=== PATIENT | female | born 1985 | race Caucasian/White ===

== ENCOUNTER 2016-07-11 12:33 | Inpatient (IN) | payer BC ==
--- NOTE | 2016-07-11 13:30 | P.HPIM ---
History of Present Illness H&P Date: 07/11/16 Chief Complaint: Dyspnea/reactive airway disease. This is a 31-year-old female relatively healthy one of Dr. Gonzales with no prior medical history who Devil loped to have a significant upper respiratory tract infection about 4 weeks ago and she was started on Augmentin and Medrol Dosepak initially this was followed by a Z-Itz without any relief patient did receive also nebulized treatment in the office along with Solu- Medrol on and off. Then she was sent for a chest x-ray yesterday that was negative for acute infiltrate, however the patient continued to have significant shortness breath associated with increased coughing and yellow to green phlegm production, patient was started yesterday on Flovent to 110 g 2 puffs inhalation twice every day, without any relief she was seen either nurse practitioner in the office today and she was referred to the hospital as a direct admit after she felt [id number] 3 nebulized treatment in the office without any relief and a dose of Solu-Medrol. Patient has been complaining of increased shortness breath over the last month or so subsequent she would be admitted to the hospital she will be started on IV Solu-Medrol 60 minute gram IV push every 6 hours, Xopenex 1.25 mg nebulization 4 times every day, Pulmicort 1 mg position twice every day, we will check labs and will obtain pulmonary consultation from Dr. RADHA Fortune. Review of Systems Constitutional: Denies anorexia, Denies chronic headaches, Denies chronic pain, Denies lethargy, Denies malaise, Denies weakness, Denies weight gain, Denies weight loss Eyes: denies blurred vision, denies bulging eye, denies decreased vision, denies diplopia, denies discharge Ears: deny: decreased hearing Ears, nose, mouth and throat: Denies dysphagia, Denies neck lump, Denies swelling in throat, Denies sore throat Breasts: absent: as per HPI Cardiovascular: Reports decreased exercise tolerance, Reports dyspnea on exertion, Reports shortness of breath, Denies chest pain, Denies high blood pressure, Denies paroxysmal nocturnal dyspnea, Denies phlebitis, Denies rapid heart beat, Denies syncope Respiratory: Reports congestion, Reports cough, Reports cough with sputum, Reports dyspnea, Reports sleep apnea, Reports snoring, Reports wheezing, Denies home oxygen Gastrointestinal: Denies abdominal pain, Denies diarrhea, Denies nausea, Denies vomiting Genitourinary: Denies dysuria, Denies hematuria Menstruation: Reports period normal Musculoskeletal: Denies myalgias Musculoskeletal: absent: ankle pain, ankle stiffness, ankle swelling, elbow pain , elbow stiffness, elbow swelling, foot pain, foot stiffness, foot swelling, hand pain, hand stiffness, hand swelling, hip pain, hip stiffness, hip swelling , knee pain, knee stiffness, knee swelling, shoulder pain, shoulder stiffness, shoulder swelling, wrist pain, wrist stiffness, wrist swelling Integumentary: Denies pruritus, Denies rash Neurological: Denies numbness, Denies weakness Psychiatric: Denies anxiety, Denies depression Endocrine: Denies fatigue, Denies weight change Past Medical History Past Medical History: Asthma Past Surgical History: Adenoidectomy, Tonsillectomy Past Anesthesia/Blood Transfusion Reactions: No Reported Reaction Past Psychological History: No Psychological Hx Reported Smoking Status: Never smoker Past Alcohol Use History: Occasional Past Drug Use History: None Reported - Past Family History Mother Family Medical History: Hypertension (Mother is 50-year-old has history of hypertension she also uses drugs heroine.) Father Family Medical History: Hypertension (Father is 52-year-old has history of hypertension and hyperlipidemia.) Brother(s) Family Medical History: No Reported History (Patient has one brother 24-year- old no major medical problems) Sister(s) Family Medical History: No Reported History (Patient has one sister 27-year-old no major medical problems.) Medications and Allergies Allergies Allergy/AdvReac Type Severity Reaction Status Date / Time vancomycin Allergy Rash/Hives Verified 07/11/16 13:10 Physical Exam Vitals: Intake and Output 07/10/16 07/11/16 07/11/16 22:59 06:59 14:59 Other: Weight 114.5 kg Patient Weight 07/12/16 06:59 Weight 114.5 kg - Constitutional General appearance: mild distress, obese - EENT Eyes: anicteric sclerae, EOMI, PERRLA, no ptosis, no scleral icterus, normal appearance ENT: hearing grossly normal, NA/AT, normal oropharynx, no thrush Ears: bilateral: normal - Neck Neck: no lymphadenopathy, normal ROM, no rigidity, no stridor, no thyromegaly Carotids: bilateral: upstroke normal Thyroid: negative: normal size - Respiratory Respiratory: bilateral: diminished, wheezing, prolonged expiration, negative: dullness, rales, rhonchi - Cardiovascular Rhythm: regular Heart sounds: normal: S1, S2 Abnormal Heart Sounds: no systolic murmur, no rub, no S3 Gallop, no S4 Gallop, no click - Gastrointestinal General gastrointestinal: normal bowel sounds, soft, no splenomegaly, no tenderness, no umbilical hernia, no ventral hernia - Integumentary Integumentary: normal, normal turgor - Neurologic Neurologic: CNII-XII intact - Musculoskeletal Musculoskeletal: strength equal bilaterally - Psychiatric Psychiatric: A&O x's 3, appropriate affect, intact judgment & insight Thrombosis Risk Factor Assmnt - DVT/VTE Prophylaxis DVT/VTE Prophylaxis: Mechanical Prophylaxis ordered, Low risk, early ambulation encouraged Assessment and Plan Plan: Assessment and plan: 1. Severe bronchospasm with reactive airway disease with acute bronchitis. Patient failed outpatient abdomen for the past 4 weeks, we'll start the patient on Solu-Medrol 60 mg IV push every 6 hours, Xopenex 1.25 mg inhalation 4 times every day, Pulmicort 1 mg inhalation twice every day, Levaquin 500 mg IV piggyback every 24 hours, we will check laboratory evaluation including d-dimer , BNP, CBC, CMP, check Mycoplasma antibodies IgG and IgM, legionella antigen in the urine, influenza AB PCR. Pulmonary consultation Dr. RADHA Fortune, if not improved in the next 24 hours we will check computed tomography scan of the chest with contrast. 2. Recent upper respiratory tract infection. Continue treatment as in paragraph #1. 3. Obesity. Patient may need to have a sleep study as an outpatient. 4. GI prophylaxis. Start the patient on the Protonix 40 mg IV push every 24 hours. 5. DVT prophylaxis. Early ambulation, start the patient on bilateral knee- high RAMONE hose. 6. Admit as an inpatient. Estimate a length of stay 2 midnights. 7. Patient is full code.
[2016-07-11] MEDS: LEVOFLOXACIN 500MG-D5W PMX 500 MG in DEXTROSE/WATER 1 100ML.BAG IVPB SCH (14:27)
[2016-07-11] MEDS: methylPREDNISolone SOD SUCCI 125 MG/2 ML VIAL IV SCH ×3 (14:27→23:32)
[2016-07-11] MEDS: PANTOPRAZOLE 40 MG/10 ML VIAL IVP SCH (14:27)
[2016-07-11] MEDS: SODIUM CHLORIDE 0.9% 1,000 ML IV SCH (14:27)
[2016-07-11 14:58] LABS: Appearance,Urine Clear (Clear); Bilirubin,Urine Negative (Negative); Glucose,Urine (UA) Negative (Negative); Ketones,Urine 1+ (Negative); Leukocyte Esterase,Urine Negative (Negative); Nitrite,Urine Negative (Negative); PH, Urine 6.5 (5.0-8.0); Protein,Urine Negative (Negative); Specific Gravity,Urine 1.011 (1.001-1.035); UA Billing (MACRO vs. MICRO) CHEM; Urobilinogen,Urine <2.0 mg/dL (<2.0)
[2016-07-11 15:10] LABS: Basophils % (A) 0 %; CH 30.1; CHCM 33.6; Eosinophils % (A) 0 %; HDW 2.28; HGB 15.2 gm/dL (11.4-16.0); Luc # (Auto) 0.09; Luc % (Auto) 1; Lymphocytes % (A) 7 %; MCH 29.8 pg (25.0-35.0); MCHC 33.1 g/dL (31.0-37.0); Mean Platelet Volume 7.6; Monocytes # (A) 0.3 k/uL (0-1.0); Monocytes % (A) 2 %; Neutrophils # (A) 12.6 k/uL (1.3-7.7); Neutrophils % (A) 90 %; RBC 5.11 m/uL (3.80-5.40); RDW 13.7 % (11.5-15.5); WBC (Perox) 14.05
[2016-07-11 15:25] LABS: ALT 49 U/L (9-52); AST 21 U/L (14-36); Alkaline Phosphatase 57 U/L (38-126); Anion Gap 12 mmol/L; Blood Urea Nitrogen 10 mg/dL (7-17); Calcium 9.9 mg/dL (8.4-10.2); Carbon Dioxide 24 mmol/L (22-30); Chloride 104 mmol/L (98-107); Glucose 135 mg/dL (74-99); Non-African American GFR(MDRD) >60 (>60 ml/min/1.73 sqM); Potassium 4.1 mmol/L (3.5-5.1); Sodium 140 mmol/L (137-145); Total Bilirubin 0.4 mg/dL (0.2-1.3); Total Protein 6.9 g/dL (6.3-8.2)
[2016-07-11] MEDS: LEVALBUTEROL NEB 1.25 MG/3 ML AMP INHALATION SCH ×2 (15:56→20:22)
[2016-07-11] MEDS: BUDESONIDE 1 MG/2 ML NEBU INHALATION SCH (20:22)
[2016-07-11] MEDS: MELATONIN 5 MG TABLET PO PRN (22:28)
[2016-07-12 03:25] LABS: Basophils % (A) 0 %; CH 30.2; CHCM 34.6; Eosinophils % (A) 0 %; HCT 42.8 % (34.0-46.0); HDW 2.37; HGB 14.7 gm/dL (11.4-16.0); Luc # (Auto) 0.08; Luc % (Auto) 1; Lymphocytes % (A) 7 %; MCH 30.2 pg (25.0-35.0); MCHC 34.4 g/dL (31.0-37.0); MCV 87.8 fL (80.0-100.0); Mean Platelet Volume 7.3; Monocytes # (A) 0.3 k/uL (0-1.0); Monocytes % (A) 2 %; Neutrophils # (A) 13.6 k/uL (1.3-7.7); Neutrophils % (A) 91 %; RBC 4.87 m/uL (3.80-5.40); RDW 13.3 % (11.5-15.5); WBC (Perox) 14.75
[2016-07-12 04:02] LABS: ALT 44 U/L (9-52); AST 14 U/L (14-36); Alkaline Phosphatase 47 U/L (38-126); Anion Gap 10 mmol/L; Blood Urea Nitrogen 10 mg/dL (7-17); Calcium 9.8 mg/dL (8.4-10.2); Carbon Dioxide 23 mmol/L (22-30); Chloride 108 mmol/L (98-107); Glucose 141 mg/dL (74-99); Non-African American GFR(MDRD) >60 (>60 ml/min/1.73 sqM); Potassium 4.4 mmol/L (3.5-5.1); Sodium 141 mmol/L (137-145); Total Bilirubin 0.4 mg/dL (0.2-1.3); Total Protein 6.6 g/dL (6.3-8.2)
[2016-07-12] MEDS: SODIUM CHLORIDE 0.9% 1,000 ML IV SCH ×2 (06:01→14:21)
[2016-07-12] MEDS: methylPREDNISolone SOD SUCCI 125 MG/2 ML VIAL IV SCH ×3 (06:01→17:50)
--- NOTE | 2016-07-12 06:23 | ECHOF ---
Referral Reason:dyspnea MEASUREMENTS -------- HEIGHT: 162.6 cm WEIGHT: 114.3 kg BP: RVIDd: 2.7 cm (< 3.3) IVSd: 1.2 cm (0.6 - 1.1) LVIDd: 3.6 cm (3.9 - 5.3) LVPWd: 1.1 cm (0.6 - 1.1) IVSs: 1.8 cm LVIDs: 1.7 cm LVPWs: 2.0 cm LAESV Index (A-L): 12.44 ml/m Ao Diam: 2.9 cm (2.0 - 3.7) AV Cusp: 1.7 cm (1.5 - 2.6) LA Diam: 3.7 cm (2.7 - 3.8) MV EXCURSION: 15.618 mm (> 18.000) MV EF SLOPE: 95 mm/s (70 - 150) EPSS: 0.7 cm MV E Patric: 0.92 m/s MV DecT: 189 ms MV A Patric: 0.55 m/s MV E/A Ratio: 1.66 RAP: 5.00 mmHg RVSP: 9.56 mmHg FINDINGS -------- Resting tachycardia (HR>100bpm). This was a technically adequate study. There is borderline concentric left ventricular hypertrophy. Overall left ventricular systolic function is normal with, an EF between 60 - 65 %. The right ventricle is normal in size and function. Normal LA size by volume 22+/-6 ml/m2. The right atrium is normal in size. The aortic valve is trileaflet, and appears structurally normal. No aortic stenosis or regurgitation. The mitral valve is normal. There is trace mitral regurgitation. Trace tricuspid regurgitation present. There is no evidence of pulmonary hypertension. The right ventricular systolic pressure, as measured by Doppler, is 9.56mmHg. The pulmonic valve is normal. The aortic root size is normal. Normal inferior vena cava with normal inspiratory collapse consistent with estimated right atrial pressure of 5 mmHg. The pericardium is normal. There is no pericardial effusion. CONCLUSIONS -------- 1. Resting tachycardia (HR>100bpm). 2. There is no pericardial effusion. 3. There is borderline concentric left ventricular hypertrophy. 4. Normal LA size by volume 22+/-6 ml/m2. 5. The aortic valve is trileaflet, and appears structurally normal. No aortic stenosis or regurgitation. 6. There is trace mitral regurgitation. 7. Trace tricuspid regurgitation present. 8. There is no evidence of pulmonary hypertension. 9. The right ventricular systolic pressure, as measured by Doppler, is 9.56mmHg. 10. The aortic root size is normal. [employer]: Guicho Suazo RDCS
[2016-07-12] MEDS: PANTOPRAZOLE 40 MG/10 ML VIAL IVP SCH (08:06)
[2016-07-12] MEDS: BUDESONIDE 1 MG/2 ML NEBU INHALATION SCH ×2 (08:43→19:22)
[2016-07-12] MEDS: LEVALBUTEROL NEB 1.25 MG/3 ML AMP INHALATION SCH ×4 (08:43→19:22)
[2016-07-12 10:42] VITALS: BMI 43.3
--- NOTE | 2016-07-12 10:54 | P.PN ---
Subjective This is a 31-year-old female relatively healthy one of Dr. Gonzales with no prior medical history who Devil loped to have a significant upper respiratory tract infection about 4 weeks ago and she was started on Augmentin and Medrol Dosepak initially this was followed by a Z-Itz without any relief patient did receive also nebulized treatment in the office along with Solu- Medrol on and off. Then she was sent for a chest x-ray yesterday that was negative for acute infiltrate, however the patient continued to have significant shortness breath associated with increased coughing and yellow to green phlegm production, patient was started yesterday on Flovent to 110 g 2 puffs inhalation twice every day, without any relief she was seen either nurse practitioner in the office today and she was referred to the hospital as a direct admit after she felt [id number] 3 nebulized treatment in the office without any relief and a dose of Solu-Medrol. Patient has been complaining of increased shortness breath over the last month or so subsequent she would be admitted to the hospital she will be started on IV Solu-Medrol 60 minute gram IV push every 6 hours, Xopenex 1.25 mg nebulization 4 times every day, Pulmicort 1 mg position twice every day, we will check labs and will obtain pulmonary consultation from Dr. RADHA Fortune. 07/12: Patient states that her breathing is a little bit better today but she does have shortness of breath with activity. She is complaining of feeling jittery after updraft treatments but this quickly resolves. She does have some tightness in her chest as well. Patient is concerned that she is exposed to mold in her apartment. No lower extremity edema. Bowel movement was yesterday. Patient does state that she sleeps well with melatonin. Consult with Dr. RADHA Fortune in place. Objective - Vital Signs Vital signs: Vital Signs Temp 97.3 F L 07/12/16 07:00 Pulse 90 07/12/16 07:00 Resp 20 07/12/16 08:00 BP 134/81 07/12/16 07:00 Pulse Ox 97 07/12/16 07:00 Intake & Output 07/11/16 07/12/16 07/12/16 18:59 06:59 18:59 Intake Total 800 Balance 800 Weight 114.5 kg Intake: Oral 800 Other: Voiding Method Toilet Toilet # Voids 2 2 - Exam Constitutional General appearance: mild distress, obese - EENT Eyes: anicteric sclerae, EOMI, PERRLA, no ptosis, no scleral icterus, normal appearance ENT: hearing grossly normal, NA/AT, normal oropharynx, no thrush Ears: bilateral: normal - Neck Neck: no lymphadenopathy, normal ROM, no rigidity, no stridor, no thyromegaly Carotids: bilateral: upstroke normal Thyroid: negative: normal size - Respiratory Respiratory: bilateral: diminished, wheezing, prolonged expiration, negative: dullness, rales, rhonchi - Cardiovascular Rhythm: regular Heart sounds: normal: S1, S2 Abnormal Heart Sounds: no systolic murmur, no rub, no S3 Gallop, no S4 Gallop, no click - Gastrointestinal General gastrointestinal: normal bowel sounds, soft, no splenomegaly, no tenderness, no umbilical hernia, no ventral hernia - Integumentary Integumentary: normal, normal turgor - Neurologic Neurologic: CNII-XII intact - Musculoskeletal Musculoskeletal: strength equal bilaterally - Psychiatric Psychiatric: A&O x's 3, appropriate affect, intact judgment & insight Thrombosis Risk Factor Assmnt - DVT/VTE Prophylaxis DVT/VTE Prophylaxis: Mechanical Prophylaxis ordered, Low risk, early ambulation encouraged - Labs CBC & Chem 7: 07/12/16 02:35 07/12/16 02:35 Labs: Abnormal Lab Results - Last 24 Hours (Table) 07/11/16 07/11/16 07/11/16 Range/Units 14:40 14:43 14:43 WBC 14.0 H (3.8-10.6) k/uL Neutrophils # 12.6 H (1.3-7.7) k/uL Chloride (98-107) mmol/L Glucose 135 H (74-99) mg/dL TSH 0.373 L (0.465-4.680) mIU/L Urine Ketones 1+ H (Negative) 07/12/16 07/12/16 Range/Units 02:35 02:35 WBC 15.0 H (3.8-10.6) k/uL Neutrophils # 13.6 H (1.3-7.7) k/uL Chloride 108 H (98-107) mmol/L Glucose 141 H (74-99) mg/dL TSH (0.465-4.680) mIU/L Urine Ketones (Negative) Assessment and Plan Plan: 1. Severe bronchospasm with reactive airway disease with acute bronchitis with possible underlying asthma not previously diagnosed with concern for mold exposure. Patient failed outpatient abdomen for the past 4 weeks, we'll start the patient on Solu-Medrol 60 mg IV push every 6 hours, Xopenex 1.25 mg inhalation 4 times every day, Pulmicort 1 mg inhalation twice every day, Levaquin 500 mg IV piggyback every 24 hours, we will check laboratory evaluation including d-dimer, BNP, CBC, CMP, check Mycoplasma antibodies IgG and IgM, legionella antigen in the urine. Pulmonary consultation Dr. RADHA Fortune, if not improved in the next 24 hours we will check computed tomography scan of the chest with contrast. 2. Recent upper respiratory tract infection. Continue treatment as in paragraph #1. 3. Obesity. Patient may need to have a sleep study as an outpatient. 4. GI prophylaxis. Start the patient on the Protonix 40 mg IV push every 24 hours. 5. DVT prophylaxis. Early ambulation, start the patient on bilateral knee- high RAMONE hose. 6. Admit as an inpatient. Estimate a length of stay 2 midnights. 7. Patient is full code. Discharge plan: Return home Impression and plan of care have been directed as dictated by the signing physician. Shira Vogel nurse practitioner acting as scribe for signing physician.
--- NOTE | 2016-07-12 12:09 | CT ---
EXAMINATION TYPE: CT chest wo con DATE OF EXAM: 07/12/2016 COMPARISON: NONE HISTORY: asthma CT DLP: 600.[address] of the chest was performed with lung and mediastinal window settings submitted. The la ck of contrast limits evaluation of the vascular, mediastinal and parenchymal structures including th e upper abdomen. LUNGS: The lungs are clear and free of infiltrate. No atelectasis. No pulmonary nodule or mass is de tected. No pleural effusion. No CT evidence of interstitial lung disease. MEDIASTINUM/DENVER: Thoracic aorta is of normal caliber with limited evaluation given lack of contrast . The heart is not enlarged. No evidence for mediastinal mass. No lymph nodes greater than 1cm. UPPER ABDOMEN: No significant abnormality is seen. OTHER: No significant other abnormality. IMPRESSION: 1. Normal study
[2016-07-12] MEDS: traMADol 50 MG TAB PO PRN ×2 (12:29→22:22)
[2016-07-12 12:44] LABS: Hemoglobin A1C 5.5 % (4.2-6.1)
--- NOTE | 2016-07-12 13:37 | CONS ---
DATE OF CONSULTATION: Bienvenido Dior is a 31-year-old female who presented to [facility] with cough, increasing shortness of breath. No clear fever or chills. This has been going on for approximately 4 weeks. She was treated with 2 courses of antibiotics and high-dose steroids in the form of Medrol Dosepak but also Solu-Medrol. She failed to improve and subsequently was admitted for further evaluation. She lives in an apartment that has been significant mold exposure that is also reconstruction going on at that time where it is likely that she is significantly exposed to mold. She had chest x-ray done at least twice, which showed no discrete infiltrates. She is short of breath and has wheezing at this time. Her past medical history is positive for tonsillectomy as a child. History of tonsillitis and upper respiratory infection about once a year. History consistent with asthma in the past. Family history is positive for lung cancer in her grandfather, hypertension in her mother and father. SOCIAL HISTORY: Patient is a nonsmoker, does not drink alcohol excessively. Has been exposed to mold in both her medical office. Her medications prior to admission were Flovent, Ventolin, Ultram, Colace, vitamins, Adderall, prednisone, codeine with guaifenesin. On physical examination, respiratory rate is 20, pulse of 88, temperature 97.3, blood pressure 134/81, O2 sat on room air is 97%. HEENT reveals pupils that are equal. No jugular venous distention. Chest reveals expiratory wheeze, prolonged expiration, poor air entry. Cardiovascular S1 and S2, no S3, no S4. Abdomen is soft. There is no pedal edema. Chest x-ray does not show any discrete infiltrate. White count is 15,000, hemoglobin of 14.7. Sodium 141, potassium 4.4, chloride 108, bicarb 23, glucose 141. Influenza A and B are negative. Urine ketones are positive. TSH is 0.373, FT4 is 1.34, plasma lactic acid is 1.1. IMPRESSION: 1. Asthma, severe with acute exacerbation is likely. 2. Infectious versus noninfectious reasons for exacerbation. At this point in time, from a pulmonary standpoint, would keep her on IV steroids, bronchodilators, aerosolized steroids. Add montelukast to her regimen. Keep her on GI and DVT prophylaxis. Check an allergy profile on her as well as a CT scan of the chest to make sure we are not dealing with any anatomic lesions as her symptoms have gone on for quite a bit. Decrease exposure to mold, check peak flows and give her a peak flow meter. Patient was counseled regarding her condition and this approach. The patient is allergic to VANCOMYCIN. Would hold off on specific antibiotic coverage at this time.
[2016-07-12] MEDS: LEVOFLOXACIN 500MG-D5W PMX 500 MG in DEXTROSE/WATER 1 100ML.BAG IVPB SCH (14:17)
[2016-07-12] MEDS: MELATONIN 5 MG TABLET PO PRN (22:09)
[2016-07-12] MEDS: HEPARIN SODIUM,PORCINE 5,000 UNIT/ML 1 ML VIAL SQ SCH (22:09)
[2016-07-12] MEDS: FAMOTIDINE 20 MG TAB PO SCH (22:10)
[2016-07-12] MEDS: MONTELUKAST 10 MG TAB PO SCH (22:10)
[2016-07-13] MEDS: methylPREDNISolone SOD SUCCI 125 MG/2 ML VIAL IV SCH ×2 (01:33→06:23)
[2016-07-13] MEDS: SODIUM CHLORIDE 0.9% 1,000 ML IV SCH (06:23)
[2016-07-13] MEDS: HEPARIN SODIUM,PORCINE 5,000 UNIT/ML 1 ML VIAL SQ SCH ×2 (07:52→21:22)
[2016-07-13] MEDS: PANTOPRAZOLE 40 MG/10 ML VIAL IVP SCH (07:52)
[2016-07-13] MEDS: FAMOTIDINE 20 MG TAB PO SCH ×2 (07:53→21:22)
[2016-07-13] MEDS: traMADol 50 MG TAB PO PRN ×2 (07:54→17:06)
[2016-07-13] MEDS: LEVALBUTEROL NEB 1.25 MG/3 ML AMP INHALATION SCH ×4 (08:03→19:26)
[2016-07-13] MEDS: BUDESONIDE 1 MG/2 ML NEBU INHALATION SCH ×2 (08:03→19:25)
--- NOTE | 2016-07-13 09:33 | P.PN ---
Subjective This is a 31-year-old female relatively healthy one of Dr. Gonzales with no prior medical history who Devil loped to have a significant upper respiratory tract infection about 4 weeks ago and she was started on Augmentin and Medrol Dosepak initially this was followed by a Z-Itz without any relief patient did receive also nebulized treatment in the office along with Solu- Medrol on and off. Then she was sent for a chest x-ray yesterday that was negative for acute infiltrate, however the patient continued to have significant shortness breath associated with increased coughing and yellow to green phlegm production, patient was started yesterday on Flovent to 110 g 2 puffs inhalation twice every day, without any relief she was seen either nurse practitioner in the office today and she was referred to the hospital as a direct admit after she felt [id number] 3 nebulized treatment in the office without any relief and a dose of Solu-Medrol. Patient has been complaining of increased shortness breath over the last month or so subsequent she would be admitted to the hospital she will be started on IV Solu-Medrol 60 minute gram IV push every 6 hours, Xopenex 1.25 mg nebulization 4 times every day, Pulmicort 1 mg position twice every day, we will check labs and will obtain pulmonary consultation from Dr. RADHA Fortune. 07/12: Patient states that her breathing is a little bit better today but she does have shortness of breath with activity. She is complaining of feeling jittery after updraft treatments but this quickly resolves. She does have some tightness in her chest as well. Patient is concerned that she is exposed to mold in her apartment. No lower extremity edema. Bowel movement was yesterday. Patient does state that she sleeps well with melatonin. Consult with Dr. RADHA Fortune in place. 07/13: Patient states that her breathing status seems to be improving. She is very anxious to get home but is agreeable to stay. She has been seen by Dr. RADHA Fortune. Tara added. CAT scan of the chest was done which was normal. Peak flow is between 450 and 550. Solu-Medrol will be decreased to 40 mg every 8 hours. Patient continues to have wheezing but is slowly improving. Objective - Vital Signs Vital signs: Vital Signs Temp 97.1 F L 07/13/16 07:00 Pulse 100 07/13/16 08:03 Resp 20 07/13/16 07:00 BP 132/83 07/13/16 07:00 Pulse Ox 96 07/13/16 07:00 Intake & Output 07/12/16 07/13/16 07/13/16 18:59 06:59 18:59 Intake Total 400 Balance 400 Weight 114.5 kg Intake: Oral 400 Other: Voiding Method Toilet # Voids 3 1 # Bowel Movements 0 - Exam Constitutional General appearance: mild distress, obese - EENT Eyes: anicteric sclerae, EOMI, PERRLA, no ptosis, no scleral icterus, normal appearance ENT: hearing grossly normal, NA/AT, normal oropharynx, no thrush Ears: bilateral: normal - Neck Neck: no lymphadenopathy, normal ROM, no rigidity, no stridor, no thyromegaly Carotids: bilateral: upstroke normal Thyroid: negative: normal size - Respiratory Respiratory: bilateral: diminished, wheezing, prolonged expiration, negative: dullness, rales, rhonchi - Cardiovascular Rhythm: regular Heart sounds: normal: S1, S2 Abnormal Heart Sounds: no systolic murmur, no rub, no S3 Gallop, no S4 Gallop, no click - Gastrointestinal General gastrointestinal: normal bowel sounds, soft, no splenomegaly, no tenderness, no umbilical hernia, no ventral hernia - Integumentary Integumentary: normal, normal turgor - Neurologic Neurologic: CNII-XII intact - Musculoskeletal Musculoskeletal: strength equal bilaterally - Psychiatric Psychiatric: A&O x's 3, appropriate affect, intact judgment & insight Thrombosis Risk Factor Assmnt - DVT/VTE Prophylaxis DVT/VTE Prophylaxis: Mechanical Prophylaxis ordered, Low risk, early ambulation encouraged - Labs CBC & Chem 7: 07/12/16 02:35 07/12/16 02:35 Assessment and Plan Plan: 1. Severe bronchospasm with reactive airway disease with acute bronchitis with possible underlying asthma not previously diagnosed with concern for mold exposure. Patient failed outpatient treatment for the past 4 weeks. Continue Xopenex 4 times daily, Pulmicort twice daily, Levaquin 500 mg daily, Solu- Medrol decreased to 40 mg every 8 hours, Singulair 10 mg. 2. Recent upper respiratory tract infection. Continue treatment as in paragraph #1. 3. Obesity. Patient may need to have a sleep study as an outpatient. 4. GI prophylaxis. Start the patient on the Protonix 40 mg every 24 hours. 5. DVT prophylaxis. Early ambulation, start the patient on bilateral knee- high RAMONE hose. 6. Admit as an inpatient. Estimate a length of stay 2 midnights. 7. Patient is full code. Discharge plan: Return home Impression and plan of care have been directed as dictated by the signing physician. Shira Vogel nurse practitioner acting as scribe for signing physician.
[2016-07-13] MEDS ORDERED: LEVOFLOXACIN 500 MG TAB PO SCH (14:00)
[2016-07-13] MEDS: methylPREDNISolone SOD SUCCI 40 MG/ML 1 ML VIAL IV SCH ×2 (14:08→23:56)
--- NOTE | 2016-07-13 19:12 | PN ---
DATE OF SERVICE: 07/13/2016. She was seen on 07/13/2016. She is doing slightly better overall. On physical examination, respiratory rate is 20, pulse rate of 104, blood pressure 132/83, O2 sat on room air is 96%. HEENT is unremarkable. Chest reveals expiratory wheeze. Cardiovascular system reveals an S1, S2. ABDOMEN: Soft. There is no pedal edema. CT scan of the chest failed to show any lung masses, however, there seems to be diffuse irregularity of the mucosa in the main bronchi as well as the trachea consistent with airway inflammation. Allergy profile is pending. IMPRESSION: Asthma with acute exacerbation is likely. Would consider a slow taper of steroids as an outpatient over at least 12 days starting at 60 mg of prednisone, was given an extra dose of Solu-Medrol tomorrow morning if she is not improving completely. She has received Solu-Medrol 60 mg IV push q6 so far that will be switched to 40 q8 per the primary service. Would continue to check peak flows on her and avoid mold exposure. Her prognosis at this time is fair. She was counseled extensively regarding her condition and this approach.
[2016-07-13] MEDS: MONTELUKAST 10 MG TAB PO SCH (21:20)
[2016-07-13] MEDS: MELATONIN 5 MG TABLET PO PRN (22:21)
[2016-07-14 03:20] LABS: Mycoplasma IgG Antibody (EIA) 1.14 INDEX (<=0.90); Mycoplasma IgM Antibody 0.36 INDEX (<=0.90)
[2016-07-14] MEDS ORDERED: PANTOPRAZOLE 40 MG TABLET PO SCH (07:30)
[2016-07-14 07:46] VITALS: BP 126/66; RESP 16; TEMP 98.4
[2016-07-14] MEDS: BUDESONIDE 1 MG/2 ML NEBU INHALATION SCH (08:15)
[2016-07-14] MEDS: LEVALBUTEROL NEB 1.25 MG/3 ML AMP INHALATION SCH ×2 (08:15→11:40)
[2016-07-14] MEDS: FAMOTIDINE 20 MG TAB PO SCH (08:39)
[2016-07-14] MEDS: methylPREDNISolone SOD SUCCI 40 MG/ML 1 ML VIAL IV SCH (08:40)
[2016-07-14] MEDS: HEPARIN SODIUM,PORCINE 5,000 UNIT/ML 1 ML VIAL SQ SCH (08:40)
[2016-07-14] MEDS: traMADol 50 MG TAB PO PRN (08:42)
[2016-07-14 11:41] VITALS: PULSE 92
--- NOTE | 2016-07-14 16:34 | P.DS ---
Providers Date of admission: 07/11/16 12:33 Expected date of discharge: 07/14/16 Attending physician: Wild Tavera Consults: 07/11/16 13:18 Consult Physician Routine Consulting Provider: Sriram Fortune Consult Reason/Comments: Dyspnea/Bronchospasm Do you want consulting provider notified?: Yes Primary care physician: Wild Tavera Hospital Course: This is a 31-year-old female relatively healthy one of Dr. Gonzales with no prior medical history who Devil loped to have a significant upper respiratory tract infection about 4 weeks ago and she was started on Augmentin and Medrol Dosepak initially this was followed by a Z-Itz without any relief patient did receive also nebulized treatment in the office along with Solu- Medrol on and off. Then she was sent for a chest x-ray yesterday that was negative for acute infiltrate, however the patient continued to have significant shortness breath associated with increased coughing and yellow to green phlegm production, patient was started yesterday on Flovent to 110 g 2 puffs inhalation twice every day, without any relief she was seen either nurse practitioner in the office today and she was referred to the hospital as a direct admit after she felt [id number] 3 nebulized treatment in the office without any relief and a dose of Solu-Medrol. Patient has been complaining of increased shortness breath over the last month or so subsequent she would be admitted to the hospital she will be started on IV Solu-Medrol 60 minute gram IV push every 6 hours, Xopenex 1.25 mg nebulization 4 times every day, Pulmicort 1 mg position twice every day, we will check labs and will obtain pulmonary consultation from Dr. RADHA Fortune. 63: Patient states that her breathing is a little bit better today but she does have shortness of breath with activity. She is complaining of feeling jittery after updraft treatments but this quickly resolves. She does have some tightness in her chest as well. Patient is concerned that she is exposed to mold in her apartment. No lower extremity edema. Bowel movement was yesterday. Patient does state that she sleeps well with melatonin. Consult with Dr. RADHA Fortune in place. 07/13: Patient states that her breathing status seems to be improving. She is very anxious to get home but is agreeable to stay. She has been seen by Dr. RADHA Fortune. Singulair added. CAT scan of the chest was done which was normal. Peak flow is between 450 and 550. Solu-Medrol will be decreased to 40 mg every 8 hours. Patient continues to have wheezing but is slowly improving. 07/14: Patient states her shortness of breath and wheezing are improved. Wheezing is noted to be improved from admission. Coughing is less frequent. Patient will be discharged home today in stable condition. Discharge diagnoses: 1. Severe bronchospasm with reactive airway disease with acute bronchitis most likely due to underlying asthma not previously diagnosed with concern for mold exposure and failure of outpatient treatment for the past 4 weeks. 2. Recent upper respiratory tract infection. 3. Obesity. Patient may need to have a sleep study as an outpatient. Discharge plan: Return home Impression and plan of care have been directed as dictated by the signing physician. Shira Vogel nurse practitioner acting as scribe for signing physician. Patient Condition at Discharge: Good Plan - Discharge Summary New Discharge Prescriptions: New Famotidine [Pepcid] 20 mg PO BID tab Levofloxacin [Levaquin] 500 mg PO Q24H #5 tab Melatonin 5 mg PO HS PRN tab PRN Reason: Insomnia Montelukast [Singulair] 10 mg PO HS #30 tab predniSONE 0 mg PO DIRECTED #40 tab Continue Albuterol Inhaler [Ventolin Hfa Inhaler] 2 puff INHALATION RT-Q6H PRN PRN Reason: Shortness Of Breath traMADol HCL [Ultram] 50 mg PO DAILY PRN PRN Reason: Pain Docusate [Colace] 100 mg PO DAILY Pnv,Calcium 72/Iron/Folic Acid [ Plus Tablet] 1 tab PO DAILY Dextroamphetamine/Amphetamine [Adderall] 30 mg PO BID Fluticasone Propionate [Flovent Hfa] 2 puff INHALATION RT-BID Discontinued predniSONE See Taper PO DIRECTED Codeine Phosphate/Guaifenesin [Cheratussin AC Syrup] 5 ml PO BID PRN PRN Reason: Cough Discharge Medication List Albuterol Inhaler [Ventolin Hfa Inhaler] 2 puff INHALATION RT-Q6H PRN 07/11/16 [ History] Dextroamphetamine/Amphetamine [Adderall] 30 mg PO BID 07/11/16 [History] Docusate [Colace] 100 mg PO DAILY 07/11/16 [History] Fluticasone Propionate [Flovent Hfa] 2 puff INHALATION RT-BID 07/11/16 [History] Pnv,Calcium 72/Iron/Folic Acid [ Plus Tablet] 1 tab PO DAILY 07/11/16 [ History] traMADol HCL [Ultram] 50 mg PO DAILY PRN 07/11/16 [History] Famotidine [Pepcid] 20 mg PO BID tab 07/14/16 [Rx] Levofloxacin [Levaquin] 500 mg PO Q24H #5 tab 07/14/16 [Rx] Melatonin 5 mg PO HS PRN tab 07/14/16 [Rx] Montelukast [Singulair] 10 mg PO HS #30 tab 07/14/16 [Rx] predniSONE 0 mg PO DIRECTED #40 tab 07/14/16 [Rx] Follow up Appointment(s)/Referral(s): Patricia Gonzales MD [STAFF PHYSICIAN] - 07/18/16 10:45 am Sriram Fortune MD [STAFF PHYSICIAN] - 1 Week Patient Instructions/Handouts: Asthma (DC), Reactive Airways Disease (DC) Discharge Disposition: HOME SELF-CARE
[2016-07-15 12:09] LABS: Alternaria alternata IgE <0.35 kU/L (<0.35); Asperg. fumagatus IgE <0.35 kU/L (<0.35); Asperg. fumagatus IgE Class CLASS 0; Birch(Com.Silvr) IgE Class CLASS 0; Cat Epith & Dander IgE <0.35 kU/L (<0.35); Cat Epith & Dander IgE Class CLASS 0; Clad herbarum IgE <0.35 kU/L (<0.35); Clad herbarum IgE Class CLASS 0; Common Ragweed IgE Class CLASS 0; Dermato. Pteronyssinus Class CLASS 0; Dermato. Pteronyssinus IgE <0.35 kU/L (<0.35); Dermato. farinae IgE <0.35 kU/L (<0.35); Dermato. farinae IgE Class CLASS 0; IgE (Allergen) 11.7 IU/mL (<114.0); Maple (Box Elder) IgE <0.35 kU/L (<0.35); Maple (Box Elder) IgE Class CLASS 0; Mountain Cedar IgE <0.35 kU/L (<0.35); Mountain Cedar IgE Class CLASS 0; Mouse Urine IgE Class CLASS 0; Mouse Urine Proteins,IgE <0.35 kU/L (<0.35); Mulberry IgE Class CLASS 0; Nettle IgE <0.35 kU/L (<0.35); Nettle IgE Class CLASS 0; Oak IgE <0.35 kU/L (<0.35); Penicillium notatum IgE Class CLASS 0; Rough Marshelder IgE <0.35 kU/L (<0.35); Rough Marshelder IgE Class CLASS 0; Timothy Grass IgE <0.35 kU/L (<0.35); Timothy Grass IgE Class CLASS 0; White Ash IgE Class CLASS 0
[2016-07-18 02:39] LABS: Alternaria tenius IgG < 2.0 mcg/mL (< 13.6); Cladosporium herbarium IgG 4.8 mcg/mL (< 14.7); Phoma ssp. IgG < 2.0 mcg/mL (< 6.6); Saccaharomospora viridis Not detected (Not detected); Saccaharopoly. rectivirgula Not detected (Not detected)
== END 2016-07-14 13:15 | disposition home or self-care (01) | DRG 202 ==
LOC: 4MS4W 12:33
PROVIDERS: ADMIT Internal Medicine; ATTEND Internal Medicine
DX: J45.901 Unspecified asthma with (acute) exacerbation (principal); Z68.41 Body mass index [BMI] 40.0-44.9, adult; R82.4 Acetonuria; J20.9 Acute bronchitis, unspecified; E66.9 Obesity, unspecified; Z88.1 Allergy status to other antibiotic agents; Z82.49 Family history of ischemic heart disease and other diseases of the circulatory system; Z80.1 Family history of malignant neoplasm of trachea, bronchus and lung; Z71.3 Dietary counseling and surveillance; Z81.3 Family history of other psychoactive substance abuse and dependence; Z86.19 Personal history of other infectious and parasitic diseases; Z77.120 Contact with and (suspected) exposure to mold (toxic); Z79.891 Long term (current) use of opiate analgesic; Z79.51 Long term (current) use of inhaled steroids; Z79.52 Long term (current) use of systemic steroids; Z79.899 Other long term (current) drug therapy; Z79.2 Long term (current) use of antibiotics; Z87.09 Personal history of other diseases of the respiratory system
CPT/HCPCS: 71250; 80053; 81003; 82103; 82104; 82164; 82785; 83036; 83605; 83880; 84439; 84443; 84484; 85025; 85379; 86001; 86003; 86038; 86606; 86609; 86738; 87449; 87502; 93005; 93306; 94640; 94760

== ENCOUNTER 2017-11-24 19:47 | Emergency (ER) | payer BC, OTHER ==
[2017-11-24 20:11] VITALS: TEMP 98.1
--- NOTE | 2017-11-24 20:29 | ED ---
Abdominal Pain HPI - General Chief Complaint: Abdominal Pain Stated Complaint: 13 wks preg/abdominal pain Time Seen by Provider: 11/24/17 20:18 Source: patient, RN notes reviewed Mode of arrival: ambulatory Limitations: no limitations - History of Present Illness Initial Comments: This is a 32-year-old female who presents to the emergency department with chief complaint of lower abdominal pain. Patient states that she is currently 13-1/2 weeks . She states that Dr. Reyes is her INDUSTRIAL COOK. Patient reports that at approximately 7 PM this evening she developed intense cramping in her lower abdomen. She states that the pain has improved and now feels like a tightening in her lower abdomen. She denies any vaginal bleeding or discharge. She denies fevers or chills, nausea or vomiting, diarrhea. 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 - Related Data Home Medications Medication Instructions Recorded Confirmed Pnv,Calcium 72/Iron/Folic Acid 1 tab PO HS 07/11/16 11/24/17 [ Plus Tablet] Progesterone, Micronized 200 mg PO HS 11/24/17 11/24/17 [Progesterone] Allergies Allergy/AdvReac Type Severity Reaction Status Date / Time vancomycin Allergy Rash/Hives Verified 11/24/17 20:25 Review of Systems ROS Statement: Those systems with pertinent positive or pertinent negative responses have been documented in the HPI. ROS Other: All systems not noted in ROS Statement are negative. Past Medical History Past Medical History: Pneumonia Additional Past Medical History / Comment(s): Recent URI x 4 weeks, constipation , hemorrhoids. History of Any Multi-Drug Resistant Organisms: None Reported Past Surgical History: Tonsillectomy Additional Past Surgical History / Comment(s): Colonoscopy Past Anesthesia/Blood Transfusion Reactions: No Reported Reaction Past Psychological History: No Psychological Hx Reported Smoking Status: Former smoker Past Alcohol Use History: Rare Past Drug Use History: None Reported - Past Family History Mother Family Medical History: Hypertension Additional Family Medical History / Comment(s): Mother is 50 yrs old. Father Family Medical History: Hyperlipidemia, Hypertension Additional Family Medical History / Comment(s): Father is 52 yrs old. Brother(s) Family Medical History: No Reported History Sister(s) Family Medical History: No Reported History General Exam - General Exam Comments Initial Comments: General: Awake and alert, well-developed; in no apparent distress. HEENT: Head atraumatic, normocephalic. Pupils are equal, round and reactive to light. Extraocular movements intact. Oropharynx moist without erythema or exudate. Neck: Supple. Normal ROM. Cardiovascular: Regular rate and rhythm. No murmurs, rubs or gallops. Chest symmetrical. Respiratory: Lungs clear to auscultation bilaterally. No wheezes, rales or rhonchi. Normal respiratory effort with no use of accessory muscles. Abdomen: Soft, non-distended. Mild tenderness on palpation of the lower abdomen. No rigidity, rebound or guarding. Normal bowel sounds in all 4 quadrants. Musculoskeletal: Normal ROM, no tenderness bilateral upper and lower extremities. Ambulating normally. Skin: [place], warm and dry without rashes or lesions. Neurological: Alert and oriented x3. CN II-XII grossly intact. Speech is fluent and answers are appropriate. No focal neuro deficits. Psychiatric: Normal mood and affect. No overt signs of depression or anxiety noted. Limitations: no limitations Course Vital Signs 11/24/17 20:07 Temperature 98.1 F Pulse Rate 103 H Respiratory 20 Rate Blood Pressure 110/67 O2 Sat by Pulse 99 Oximetry Medical Decision Making - Medical Decision Making This is a 32-year-old female who presents to the emergency department with chief complaint of abdominal pain. Patient reports she is 13-1/2 weeks . She states that she developed lower abdominal cramping and tightening this evening. Denies vaginal bleeding or discharge. There is mild tenderness on palpation of the lower abdomen. CBC does reveal a slightly elevated white count at 13.2 with a left shift at 10.4. CMP demonstrates elevated liver transaminases with an AST at 59 and an ALT at 85. There is no tenderness on palpation of the right upper quadrant. Case discussed with attending physician, Dr. Sumner. Recommended adding on an LDH. This is within normal limits. Patient is too early for HELLP syndrome or preeclampsia. Blood pressure is normal. Obstetrical ultrasound reveals a viable IUP at 14 weeks. Heart rate of 1 59 bpm. No complicating processes were seen. Findings were discussed with patient at bedside. Recommended that she follow up with her [employer]OOK regarding elevated liver enzymes with possibility of following up with a high risk doctor. Patient's vital signs are stable and she is in no acute distress. She will be discharged home at this time. She is in agreement and voices understanding. All questions were answered. Patient is discharged in stable condition. - Lab Data Result diagrams: 11/24/17 20:26 11/24/17 20:26 Lab Results 11/24/17 11/24/17 11/24/17 Range/Units 20:26 20:26 20:26 WBC 13.2 H (3.8-10.6) k/uL RBC 4.59 (3.80-5.40) m/uL Hgb 14.0 (11.4-16.0) gm/dL Hct 41.0 (34.0-46.0) % MCV 89.2 (80.0-100.0) fL MCH 30.4 (25.0-35.0) pg MCHC 34.1 (31.0-37.0) g/dL RDW 12.8 (11.5-15.5) % Plt Count 284 (150-450) k/uL Neutrophils % 79 % Lymphocytes % 15 % Monocytes % 4 % Eosinophils % 1 % Basophils % 0 % Neutrophils # 10.4 H (1.3-7.7) k/uL Lymphocytes # 2.0 (1.0-4.8) k/uL Monocytes # 0.5 (0-1.0) k/uL Eosinophils # 0.1 (0-0.7) k/uL Basophils # 0.0 (0-0.2) k/uL Sodium 137 (137-145) mmol/L Potassium 3.9 (3.5-5.1) mmol/L Chloride 106 (98-107) mmol/L Carbon Dioxide 22 (22-30) mmol/L Anion Gap 9 mmol/L BUN 6 L (7-17) mg/dL Creatinine 0.46 L (0.52-1.04) mg/dL Est GFR (CKD-EPI)AfAm >90 (>60 ml/min/1.73 sqM) Est GFR (CKD-EPI)NonAf >90 (>60 ml/min/1.73 sqM) Glucose 92 (74-99) mg/dL Calcium 9.1 (8.4-10.2) mg/dL Total Bilirubin 0.4 (0.2-1.3) mg/dL AST 59 H (14-36) U/L ALT 85 H (9-52) U/L Alkaline Phosphatase 44 (38-126) U/L Lactate Dehydrogenase (313-618) U/L Total Protein 6.5 (6.3-8.2) g/dL Albumin 3.6 (3.5-5.0) g/dL HCG, Quant 52576.8 mIU/mL Urine Color Yellow Urine Appearance Clear (Clear) Urine pH 6.0 (5.0-8.0) Ur Specific [place] 1.016 (1.001-1.035) Urine Protein Trace H (Negative) Urine Glucose (UA) Negative (Negative) Urine Ketones 2+ H (Negative) Urine Blood Negative (Negative) Urine Nitrite Negative (Negative) Urine Bilirubin Negative (Negative) Urine Urobilinogen <2.0 (<2.0) mg/dL Ur Leukocyte Esterase Negative (Negative) 11/24/17 Range/Units 20:26 WBC (3.8-10.6) k/uL RBC (3.80-5.40) m/uL Hgb (11.4-16.0) gm/dL Hct (34.0-46.0) % MCV (80.0-100.0) fL MCH (25.0-35.0) pg MCHC (31.0-37.0) g/dL RDW (11.5-15.5) % Plt Count (150-450) k/uL Neutrophils % % Lymphocytes % % Monocytes % % Eosinophils % % Basophils % % Neutrophils # (1.3-7.7) k/uL Lymphocytes # (1.0-4.8) k/uL Monocytes # (0-1.0) k/uL Eosinophils # (0-0.7) k/uL Basophils # (0-0.2) k/uL Sodium (137-145) mmol/L Potassium (3.5-5.1) mmol/L Chloride (98-107) mmol/L Carbon Dioxide (22-30) mmol/L Anion Gap mmol/L BUN (7-17) mg/dL Creatinine (0.52-1.04) mg/dL Est GFR (CKD-EPI)AfAm (>60 ml/min/1.73 sqM) Est GFR (CKD-EPI)NonAf (>60 ml/min/1.73 sqM) Glucose (74-99) mg/dL Calcium (8.4-10.2) mg/dL Total Bilirubin (0.2-1.3) mg/dL AST (14-36) U/L ALT (9-52) U/L Alkaline Phosphatase (38-126) U/L Lactate Dehydrogenase 611 (313-618) U/L Total Protein (6.3-8.2) g/dL Albumin (3.5-5.0) g/dL HCG, Quant mIU/mL Urine Color Urine Appearance (Clear) Urine pH (5.0-8.0) Ur Specific [place] (1.001-1.035) Urine Protein (Negative) Urine Glucose (UA) (Negative) Urine Ketones (Negative) Urine Blood (Negative) Urine Nitrite (Negative) Urine Bilirubin (Negative) Urine Urobilinogen (<2.0) mg/dL Ur Leukocyte Esterase (Negative) - Radiology Data Radiology results: report reviewed Obstetrical ultrasound impression: Viable IUP 14 weeks 0 days SRIKANTH 05/25/2018. Heart rate 159 bpm. No complicating process seen. As read by Dr. Ontiveros. Disposition Clinical Impression: Abdominal pain affecting , Elevated liver enzymes Disposition: HOME SELF-CARE Condition: Good Instructions: Abdominal Pain in (ED) Additional Instructions: As discussed, please address elevated liver enzymes with your [employer]. Please follow up with primary care provider within 1-2 days. Return to emergency department if symptoms should worsen or any concerns arise. Is patient prescribed a controlled substance at d/c from ED?: No Referrals: Jason Chua MD [Primary Care Provider] - 1-2 days Time of Disposition: 22:05
[2017-11-24 20:35] LABS: Basophils % (A) 0 %; Eosinophils # (A) 0.1 k/uL (0-0.7); Eosinophils % (A) 1 %; Lymphocytes % (A) 15 %; MCH 30.4 pg (25.0-35.0); MCHC 34.1 g/dL (31.0-37.0); MCV 89.2 fL (80.0-100.0); Mean Platelet Volume 7.5; Monocytes # (A) 0.5 k/uL (0-1.0); Monocytes % (A) 4 %; Neutrophils # (A) 10.4 k/uL (1.3-7.7); Neutrophils % (A) 79 %; Platelet Count 284 k/uL (150-450); RBC 4.59 m/uL (3.80-5.40); RDW 12.8 % (11.5-15.5); WBC 13.2 k/uL (3.8-10.6)
[2017-11-24 20:36] LABS: Appearance,Urine Clear (Clear); Bilirubin,Urine Negative (Negative); Blood,Urine Negative (Negative); Color,Urine Yellow; Glucose,Urine (UA) Negative (Negative); Ketones,Urine 2+ (Negative); Leukocyte Esterase,Urine Negative (Negative); Nitrite,Urine Negative (Negative); Protein,Urine Trace (Negative); Specific Gravity,Urine 1.016 (1.001-1.035); Urobilinogen,Urine <2.0 mg/dL (<2.0)
[2017-11-24 20:44] LABS: ALT 85 U/L (9-52); AST 59 U/L (14-36); Albumin 3.6 g/dL (3.5-5.0); Alkaline Phosphatase 44 U/L (38-126); Anion Gap 9 mmol/L; Blood Urea Nitrogen 6 mg/dL (7-17); Calcium 9.1 mg/dL (8.4-10.2); Carbon Dioxide 22 mmol/L (22-30); Chloride 106 mmol/L (98-107); Glucose 92 mg/dL (74-99); Potassium 3.9 mmol/L (3.5-5.1); Sodium 137 mmol/L (137-145); Total Bilirubin 0.4 mg/dL (0.2-1.3); Total Protein 6.5 g/dL (6.3-8.2)
--- NOTE | 2017-11-24 21:14 | US ---
EXAMINATION TYPE: Transabdominal DATE OF EXAM: 05/12/17 COMPARISON: NONE CLINICAL HISTORY: abdominal pain. Cramping EXAM PERFORMED: Transabdominal (TA) EXAM MEASUREMENTS: GESTATIONAL AGE / DATING Physician Established: (13 weeks/4 days) EDC: 05/28/2018 Dates by LMP: (13 weeks/4 days) EDC: 05/28/2018 Dates by First Scan: No previous this is first scan Dates by Current Scan for: (14 weeks/0 days) EDC: 05/25/2018 MATERNAL ANATOMY Uterus: 16.2 x 8.2 x 10.0 cm Right Ovary: 3.5 x 2.5 x 2.7 cm Post CDS / Adnexa: wnl Presence of free fluid: no Presence of corpus luteal cyst: no Presence of subchorionic bleed: no GESTATION / SURVEY CRL: 8.1cm (14 weeks/0 days) Heart Rate: 159 bpm Rhythm: Normal IUP: Viable IUP Beta HcG (if available): Not available at this time Viable IUP 14w0d SRIKANTH 05/25/2018 HR 159 BPM IMPRESSION:no complicating process seen.
[2017-11-24 21:28] LABS: HCG,Quantitative Serum 64128.8 mIU/mL
[2017-11-24 22:32] VITALS: BP 136/86; PULSE 98; RESP 18
== END 2017-11-24 22:31 | disposition home or self-care (01) ==
LOC: EC 19:47
DX: O99.89 Other specified diseases and conditions complicating pregnancy, childbirth and the puerperium (principal); R10.30 Lower abdominal pain, unspecified; O26.612 Liver and biliary tract disorders in pregnancy, second trimester; R94.5 Abnormal results of liver function studies; O99.112 Other diseases of the blood and blood-forming organs and certain disorders involving the immune mechanism complicating pregnancy, second trimester; D72.829 Elevated white blood cell count, unspecified; Z3A.14 14 weeks gestation of pregnancy; Z88.1 Allergy status to other antibiotic agents; Z87.891 Personal history of nicotine dependence
CPT/HCPCS: 36415; 76801; 76817; 80053; 81003; 83615; 84702; 85025; 99284

== ENCOUNTER 2018-02-03 22:48 | Outpatient (CLI) | payer BC, OTHER ==
[2018-02-03 23:50] VITALS: BP 112/65; PULSE 102; RESP 18; TEMP 96.9
[2018-02-03 23:54] LABS: Appearance,Urine Cloudy (Clear); Bacteria,Urine Few /hpf; Bilirubin,Urine Negative (Negative); Blood,Urine Negative (Negative); Color,Urine Yellow; Glucose,Urine (UA) Negative (Negative); Ketones,Urine Trace (Negative); Leukocyte Esterase,Urine Negative (Negative); Mucus,Urine Many /hpf; Nitrite,Urine Negative (Negative); PH, Urine 5.5 (5.0-8.0); Protein,Urine Trace (Negative); RBC,Urine 1 /hpf (0-5); Specific Gravity,Urine 1.022 (1.001-1.035); Squamous Epithelial Cell,Urine 7 /hpf (0-4); Urobilinogen,Urine <2.0 mg/dL (<2.0); WBC,Urine 6 /hpf (0-5)
--- NOTE | 2018-02-08 09:26 | P.MSEPDOC ---
Presenting Problems - Arrival Data Date of Arrival on Unit: 02/03/18 Time of Arrival on Unit: 01:00 Mode of Transport: Ambulatory - Complaint OB-Reason for Admission/Chief Complaint: Pain Comment: left sided groin pain that shoots up to lower abd Medical History - Information : 3 Para: 0 Term: 0 : 0 Abortions: Spontaneous or Elective: 0 Number of Living Children: 0 - Gestational Age Gestational Age by SRIKANTH (wks/days): 23 Weeks and 5 Days Review of Systems - Review of Systems Constitutional: No problems Breast: No problems ENT: No problems Cardiovascular: No problems Respiratory: No problems Gastrointestinal: No problems Genitourinary: No problems Musculoskeletal: No problems Neurological: No problems Skin: No problems Vital Signs - Temperature Temperature: 96.9 F Temperature Source: Temporal Artery Scan - Pulse Right Brachial Pulse Rate: 102 Pulse Assessment Method: Automatic Cuff - Respirations Respiratory Rate: 18 Oxygen Delivery Method: Room Air - Blood Pressure Right Arm Blood Pressure: 112/65 Blood Pressure Mean: 80 Blood Pressure Source: Automatic Cuff Medical Screen Scoring (Pre) - Cervical Exam Dilation: 0 cm = 0 Effacement: Exam Deferred Membranes: Intact - Uterine Contractions Frequency: N/A Duration: N/A Intensity: N/A - Maternal Vital Signs Maternal Temperature: N/A Maternal Blood Pressure: N/A Signs of Preeclampsia: N/A Maternal Respirations: N/A - Pain Assessment Pain Scale Used: Numeric (1 - 10) Pain Intensity: 7 Pain Description: *Acute, Sharp, Shooting Pain Frequency: Intermittent Pain Behavior: Vocalization - Maternal Trauma Maternal Trauma: N/A - Assessment Baseline FHR: 150 Heart Rate - NICHD Category: Category I (Normal) = 0 Position: N/A Station: N/A - Total Score Total Score (Pre): 0 - Level of Risk Level of Risk: Low (0-5) Physician Notification (Pre) - Physician Notified Physician Notified Date: 02/03/18 Physician Notified Time: 23:19 Physician/Practitioner Notifed:: Dr. Reyes Spoke With: Dr. Reyes New Order Received: Yes - Notification Comment Comment: discharge pt on oral fluids if ketones 1 or less, pelvice restif ketones more than 1, than give 2 liter ivf bolus, UA showed trace keytones, pt to increase oral fluids Disposition - Disposition OB Disposition: Physician follow up in office, Triage, Discharge to home, Written follow up instructions reviewed Discharge Date: 02/04/18 Discharge Time: 00:10 I agree with the RN Medical Screening Exam: Yes Risk & Benefit of care provided described in d/c instruction: Yes Diagnosis: RELATED CONDITIONS, UNSPECIFIED, SECOND TRIMESTER
== END 2018-02-04 00:10 | disposition home or self-care (01) ==
LOC: FBPOP 22:48
PROVIDERS: ATTEND Obstetrics & Gynecology
DX: O26.92 Pregnancy related conditions, unspecified, second trimester (principal); Z3A.23 23 weeks gestation of pregnancy
CPT/HCPCS: 81001; 99213

== ENCOUNTER → 2018-03-31 | Outpatient (CLI) | payer BC, OTHER ==
[~2018-03-31] MED LIST: BETAMET ACET-BETAMETH SOD PHOS 6 MG/ML VIAL IM SCH
[2018-03-31 15:59] VITALS: BP 122/72; PULSE 72; RESP 18; TEMP 99.3
--- NOTE | 2018-04-02 10:51 | P.MSEPDOC ---
Presenting Problems - Arrival Data Date of Arrival on Unit: 03/31/18 Time of Arrival on Unit: 15:20 Mode of Transport: Ambulatory - Complaint OB-Reason for Admission/Chief Complaint: Celestone Injection Medical History - Information : 3 Para: 0 Term: 0 : 0 Abortions: Spontaneous or Elective: 2 Number of Living Children: 0 - Gestational Age Gestational Age by SRIKANTH (wks/days): 31 Weeks and 5 Days - History Comment: 50% effaced at office. Review of Systems - Review of Systems Constitutional: No problems Breast: No problems ENT: No problems Cardiovascular: No problems Respiratory: No problems Gastrointestinal: No problems Genitourinary: No problems Musculoskeletal: No problems Neurological: No problems Skin: No problems Comment: hx of hxv. acyclovir 400 mg po qd. Vital Signs - Temperature Temperature: 99.3 F Temperature Source: Oral - Pulse Right Brachial Pulse Rate: 72 Pulse Assessment Method: Auscultation - Respirations Respiratory Rate: 18 Oxygen Delivery Method: Room Air O2 Sat by Pulse Oximetry: 98 - Blood Pressure Right Arm Blood Pressure: 122/72 Blood Pressure Mean: 88 Blood Pressure Source: Automatic Cuff Medical Screen Scoring (Pre) - Cervical Exam Dilation: Exam Deferred Effacement: Exam Deferred Membranes: Intact - Uterine Contractions Frequency: N/A, Scheduled / = 6 Intensity: N/A - Maternal Vital Signs Maternal Temperature: N/A Maternal Blood Pressure: N/A Signs of Preeclampsia: N/A Maternal Respirations: N/A - Pain Assessment Pain Scale Used: Numeric (1 - 10) Pain Intensity: 3 Pain Description: *Acute Pain Behavior: None Exhibited, Vocalization Pain Aggravating Factors: Activity Non-Pharmacological Interventions: Position/Reposition - Maternal Trauma Maternal Trauma: N/A - Assessment Baseline FHR: 140 Heart Rate - NICHD Category: Category I (Normal) = 0 NST: Reactive Position: N/A Station: N/A - Total Score Total Score (Pre): 6 - Level of Risk Level of Risk: Medium (6-9) Physician Notification (Pre) - Physician Notified Physician Notified Date: 03/31/18 Physician Notified Time: 15:35 Physician/Practitioner Notifed:: james Spoke With: james New Order Received: Yes - Notification Comment Comment: disch home. do nt do nst. (pt just came from office) celestone 12 mg im then disch home. on unit at 1535 and saw pt in triage Disposition - Disposition OB Disposition: Discharge to home Discharge Date: 03/31/18 Discharge Time: 16:09 I agree with the RN Medical Screening Exam: Yes Risk & Benefit of care provided described in d/c instruction: Yes Diagnosis: RELATED CONDITIONS, UNSPECIFIED, THIRD TRIMESTER
== END | disposition home or self-care (01) ==
LOC: FBPOP 15:15
PROVIDERS: ATTEND Obstetrics & Gynecology
DX: O26.93 Pregnancy related conditions, unspecified, third trimester (principal); Z3A.31 31 weeks gestation of pregnancy
CPT/HCPCS: 96372; J0702; 99214

== ENCOUNTER 2018-04-01 15:10 | Outpatient (CLI) | payer BC, OTHER ==
[2018-04-01] MEDS ORDERED: DIPH,PERTUS(ACELL)TETVAC-LF 0.5 ML VIAL IM ONE (15:20)
[2018-04-01] MEDS ORDERED: BETAMET ACET-BETAMETH SOD PHOS 6 MG/ML VIAL IM SCH (15:30)
--- NOTE | 2018-06-07 09:08 | P.MSEPDOC ---
Presenting Problems - Arrival Data Date of Arrival on Unit: 04/01/18 Time of Arrival on Unit: 15:10 Mode of Transport: Ambulatory Disposition - Disposition OB Disposition: Physician follow up in office, Discharge to home I agree with the RN Medical Screening Exam: No Risk & Benefit of care provided described in d/c instruction: No Risk & Benefit of Care Comment: O26.93 Diagnosis: RELATED CONDITIONS, UNSPECIFIED, THIRD TRIMESTER Additional Diagnoses: O26.93
--- NOTE | 2018-06-10 06:56 | P.MSEPDOC ---
Presenting Problems - Arrival Data Date of Arrival on Unit: 04/01/18 Time of Arrival on Unit: 15:10 Mode of Transport: Ambulatory Disposition - Disposition OB Disposition: Physician follow up in office, Discharge to home I agree with the RN Medical Screening Exam: No Risk & Benefit of care provided described in d/c instruction: No Diagnosis: RELATED CONDITIONS, UNSPECIFIED, THIRD TRIMESTER
== END 2018-04-01 16:05 | disposition home or self-care (01) ==
LOC: FBPOP 15:10
PROVIDERS: ATTEND Obstetrics & Gynecology
DX: O26.93 Pregnancy related conditions, unspecified, third trimester (principal)
CPT/HCPCS: 99213; 96372; 90715; J0702

== ENCOUNTER 2018-04-13 19:49 | Outpatient (CLI) | payer BC, OTHER ==
[2018-04-13 20:25] VITALS: BP 133/72; PULSE 122; RESP 16; TEMP 99.2
[2018-04-13] MEDS ORDERED: LACTATED RINGERS 1,000 ML IV SCH (21:00)
[2018-04-13 21:05] LABS: Appearance,Urine Cloudy (Clear); Bacteria,Urine Rare /hpf; Bilirubin,Urine Negative (Negative); Blood,Urine Negative (Negative); Color,Urine Yellow; Glucose,Urine (UA) Trace (Negative); Hyaline Casts,Urine 5 /lpf (0-2); Ketones,Urine 2+ (Negative); Leukocyte Esterase,Urine Negative (Negative); Mucus,Urine Moderate /hpf; Nitrite,Urine Negative (Negative); Protein,Urine 1+ (Negative); RBC,Urine 1 /hpf (0-5); Specific Gravity,Urine 1.021 (1.001-1.035); Squamous Epithelial Cell,Urine 6 /hpf (0-4); WBC,Urine 4 /hpf (0-5)
[2018-04-13] MEDS ORDERED: NIFEdipine XL 30 MG TAB.ER.24 PO SCH (22:00)
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
== END 2018-04-13 22:41 | disposition home or self-care (01) ==
LOC: FBPOP 19:49
PROVIDERS: ATTEND Obstetrics & Gynecology
DX: O47.03 False labor before 37 completed weeks of gestation, third trimester (principal); Z3A.33 33 weeks gestation of pregnancy
CPT/HCPCS: 59025; 81001; 96360; 96361; 99214

== ENCOUNTER 2018-04-19 13:58 | Outpatient (CLI) | payer BC, OTHER ==
[2018-04-19 15:29] VITALS: BP 117/74; PULSE 81; RESP 16; TEMP 97.2
[2018-04-19] MEDS ORDERED: NIFEdipine XL 30 MG TAB.ER.24 PO STA (15:43)
[2018-04-19] MEDS ORDERED: LACTATED RINGERS 1,000 ML IV SCH (15:45)
--- NOTE | 2018-05-05 08:01 | P.MSEPDOC ---
Presenting Problems - Arrival Data Date of Arrival on Unit: 04/19/18 Time of Arrival on Unit: 13:58 Mode of Transport: Ambulatory - Complaint OB-Reason for Admission/Chief Complaint: Observation/Evaluation Medical History - Information : 3 Para: 0 Term: 0 : 0 Abortions: Spontaneous or Elective: 2 Number of Living Children: 0 - Gestational Age Gestational Age by SRIKANTH (wks/days): 34 Weeks and 3 Days Review of Systems - Review of Systems Constitutional: No problems Breast: No problems ENT: No problems Cardiovascular: No problems Respiratory: No problems Gastrointestinal: No problems Genitourinary: No problems Musculoskeletal: No problems Neurological: No problems Skin: No problems Vital Signs - Temperature Temperature: 97.2 F Temperature Source: Temporal Artery Scan - Pulse Right Sitting Pulse Rate: 81 Pulse Assessment Method: Automatic Cuff - Respirations Respiratory Rate: 16 Oxygen Delivery Method: Room Air - Blood Pressure Right Arm Blood Pressure: 117/74 Blood Pressure Mean: 88 Medical Screen Scoring (Pre) - Cervical Exam Dilation: 1-3 cm = 1 Effacement: More than 50% = 2 Membranes: Intact - Uterine Contractions Frequency: > 5 minutes apart = 1 Duration: > 40 seconds = 2 Intensity: N/A - Maternal Vital Signs Maternal Temperature: N/A Maternal Blood Pressure: N/A Signs of Preeclampsia: N/A Maternal Respirations: N/A - Pain Assessment Pain Location and Character: Pelvic Pain Scale Used: Numeric (1 - 10) Pain Intensity: 7 Pain Management Goal: 4 Pain Description: Pressure Pain Frequency: Intermittent Pain Duration Units: Days Pain Behavior: Vocalization Pain Aggravating Factors: Contractions - Maternal Trauma Maternal Trauma: N/A - Assessment Baseline FHR: 135 Heart Rate - NICHD Category: Category I (Normal) = 0 NST: Reactive Position: N/A Station: N/A - Total Score Total Score (Pre): 6 - Level of Risk Level of Risk: Medium (6-9) Physician Notification (Pre) - Physician Notified Physician Notified Date: 04/19/18 Physician Notified Time: 15:13 Physician/Practitioner Notifed:: Amy New Order Received: No Disposition - Disposition OB Disposition: Physician follow up in office Discharge Date: 04/19/18 Discharge Time: 17:00 I agree with the RN Medical Screening Exam: Yes Risk & Benefit of care provided described in d/c instruction: Yes Diagnosis: FALSE LABOR BEFORE 37 COMPLETED WEEKS OF GEST, THIRD TRI
== END 2018-04-19 17:00 | disposition home or self-care (01) ==
LOC: FBPOP 13:58
PROVIDERS: ATTEND Obstetrics & Gynecology
DX: O47.03 False labor before 37 completed weeks of gestation, third trimester (principal); Z3A.34 34 weeks gestation of pregnancy
CPT/HCPCS: 59025; 96360; 99214

== ENCOUNTER 2018-05-19 13:06 | Outpatient (CLI) | payer BC, OTHER ==
[2018-05-19 15:19] VITALS: BP 117/79; PULSE 89; RESP 18; TEMP 96.9
--- NOTE | 2018-06-07 09:20 | P.MSEPDOC ---
Presenting Problems - Arrival Data Date of Arrival on Unit: 05/19/18 Time of Arrival on Unit: 13:07 Mode of Transport: Ambulatory - Complaint OB-Reason for Admission/Chief Complaint: Possible Onset of Labor Comment: pt presents with c\o contractions Medical History - Information : 3 Para: 0 Term: 0 : 0 Abortions: Spontaneous or Elective: 0 Number of Living Children: 0 - Gestational Age Gestational Age by SRIKANTH (wks/days): 38 Weeks and 5 Days - History Complications: GBS+ Review of Systems - Review of Systems Constitutional: No problems Breast: No problems ENT: No problems Cardiovascular: No problems Respiratory: No problems Gastrointestinal: No problems Genitourinary: No problems Musculoskeletal: No problems Neurological: No problems Skin: No problems Vital Signs - Temperature Temperature: 96.9 F Temperature Source: Temporal Artery Scan - Pulse Right Brachial Pulse Rate: 89 Pulse Assessment Method: Automatic Cuff - Respirations Respiratory Rate: 18 Oxygen Delivery Method: Room Air - Blood Pressure Right Arm Blood Pressure: 117/79 Blood Pressure Mean: 91 Blood Pressure Source: Automatic Cuff Medical Screen Scoring (Pre) - Cervical Exam Dilation: 4-7 cm = 2 Effacement: More than 50% = 2 Membranes: Intact - Uterine Contractions Frequency: > 5 minutes apart = 1 Duration: N/A Intensity: N/A - Maternal Vital Signs Maternal Temperature: N/A Maternal Blood Pressure: N/A Signs of Preeclampsia: N/A Maternal Respirations: N/A - Pain Assessment Pain Scale Used: Numeric (1 - 10) Pain Intensity: 5 Pain Management Goal: 3 Pain Description: *Acute, Cramping, Tightness Pain Frequency: Intermittent Pain Duration: 2 Pain Duration Units: Hours Pain Behavior: Vocalization Pain Aggravating Factors: Contractions - Maternal Trauma Maternal Trauma: N/A - Assessment Baseline FHR: 135 Heart Rate - NICHD Category: Category I (Normal) = 0 NST: Reactive Position: N/A - Total Score Total Score (Pre): 5 - Level of Risk Level of Risk: Low (0-5) Physician Notification (Pre) - Physician Notified Physician Notified Date: 05/19/18 Physician Notified Time: 14:34 Physician/Practitioner Notifed:: Dr. Reyes Spoke With: Dr. Reyes New Order Received: Yes - Notification Comment Comment: discharge pt home and have her return tomorrow 05/20/18 at 0600 for induction of labor Disposition - Disposition OB Disposition: Physician follow up in office, Triage, Discharge to home, Written follow up instructions reviewed Discharge Date: 05/19/18 Discharge Time: 14:40 I agree with the RN Medical Screening Exam: Yes Risk & Benefit of care provided described in d/c instruction: Yes Diagnosis: FALSE LABOR AT OR AFTER 37 COMPLETED WEEKS OF GESTATION
== END 2018-05-19 14:40 | disposition home or self-care (01) ==
LOC: FBPOP 13:06
PROVIDERS: ATTEND Obstetrics & Gynecology
DX: O47.1 False labor at or after 37 completed weeks of gestation (principal); Z3A.38 38 weeks gestation of pregnancy
CPT/HCPCS: 59025; 84112; G0463; 99213

== ENCOUNTER 2018-05-20 06:00 | Inpatient (IN) | payer OTHER ==
[2018-05-20] MEDS ORDERED: OXYTOCIN 10 UNIT/ML 1 ML VIAL IM PRN (06:41)
[2018-05-20] MEDS ORDERED: PENICILLIN G POTASSIUM 5,000,000 UNIT in DEXTROSE 5% IN WATER 100 ML IVPB STA ×2 (06:41)
[2018-05-20] MEDS ORDERED: LIDOCAINE 0.5% (PF) 5 MG/ML (50 ML SDV) SQ PRN (06:41)
[2018-05-20] MEDS ORDERED: METHYLERGONOVINE 0.2 MG/ML 1 ML AMP IM PRN (06:41)
[2018-05-20] MEDS ORDERED: TERBUTALINE 1 MG/ML VIAL SQ PRN (06:41)
[2018-05-20] MEDS ORDERED: CARBOPROST TROMETHAMINE 250 MCG/ML 1 ML AMP IM PRN (06:41)
[2018-05-20] MEDS ORDERED: OXYTOCIN 30 UNITS/500 ML NS 30 UNIT in SALINE 1 500ML.BAG IV SCH (06:45)
[2018-05-20] MEDS: LACTATED RINGERS 1,000 ML IV SCH ×3 (06:54→20:49)
[2018-05-20 06:59] LABS: Basophils % (A) 0 %; Eosinophils # (A) 0.1 k/uL (0-0.7); Eosinophils % (A) 1 %; HCT 39.5 % (34.0-46.0); HGB 12.8 gm/dL (11.4-16.0); Lymphocytes # (A) 1.9 k/uL (1.0-4.8); Lymphocytes % (A) 20 %; MCH 29.2 pg (25.0-35.0); MCHC 32.4 g/dL (31.0-37.0); Mean Platelet Volume 8.5; Monocytes # (A) 0.5 k/uL (0-1.0); Monocytes % (A) 5 %; Neutrophils # (A) 6.8 k/uL (1.3-7.7); Neutrophils % (A) 71 %; Platelet Count 213 k/uL (150-450); RBC 4.39 m/uL (3.80-5.40); RDW 14.1 % (11.5-15.5); WBC 9.6 k/uL (3.8-10.6)
[2018-05-20 07:09] VITALS: BMI 48.8
[2018-05-20] MEDS ORDERED: BUTORPHANOL 1 MG/ML 1 ML VIAL IV PRN (07:30)
--- NOTE | 2018-05-20 07:47 | P.HPOB ---
History of Present Illness H&P Date: 05/20/18 This is a 33-year-old white female 3 para 0020 EDC 05/28/2018 at 38-6/7 weeks' gestation. Patient presents with advanced cervical dilatation, increased pelvic pressure and uterine contractions. Her cervix was noted to be 6 cm in the office. Fetus is been active throughout the . She denies vaginal bleeding or fluid leakage. Past medical history is significant for infertility, PCOS, and herpes simplex virus. No lesions or prodrome noted at this time. Past surgical history colonoscopy, hysterosalpingogram, tonsillectomy, wisdom teeth extracted. Current medications acyclovir 400 mg tabs twice daily, metformin 500 mg twice daily, vitamin daily. ALLERGIES include molds and vancomycin to which reports hives and itching. history is significant for blood type A+, group B strep cultures positive. Rubella status immune. Gonorrhea and chlamydia cultures, HIV testing, appetite is be surface antigen negative. One-hour Glucola 128, hemoglobin A1c 5.3. Initial liver enzymes were elevated, recheck in March reveals normal-appearing liver enzymes. Estimated weight for this is greater than 97th percentile. On exam this patient is 5 foot 4-1/2 inches, 298 pounds, blood pressure 124/86, pulse 90, respirations 18. The general physical exam is otherwise within normal limits. The extremities reveal +1 edema. Cervix is 6 cm dilated, 80% effaced, -2 station, vertex presentation. Artificial amniorrhexis reveals clear fluid. heart rate is consistent with reactive NST. Impression: 38-6/7 weeks intrauterine , advanced cervical dilatation, in early labor. Large for gestational age fetus. Morbid maternal obesity. P ositive group B strep cultures. History of HSV, no lesions or prodrome at present. Plan: Close maternal and surveillance. Oxytocin per hospital protocol. Penicillin G is infusing. Anticipate normal spontaneous vaginal delivery. Review of Systems As in HPI. Constitutional: Reports as per HPI Past Medical History Past Medical History: No Reported History, Pneumonia Additional Past Medical History / Comment(s): Recent URI x 4 weeks, constipation, hemorrhoids. History of Any Multi-Drug Resistant Organisms: None Reported Past Surgical History: No Surgical Hx Reported, Tonsillectomy Additional Past Surgical History / Comment(s): Colonoscopy Past Anesthesia/Blood Transfusion Reactions: No Reported Reaction Past Psychological History: No Psychological Hx Reported Additional Psychological History / Comment(s): Pt resides with her gus. She is independent. Smoking Status: Never smoker Past Alcohol Use History: Rare Additional Past Alcohol Use History / Comment(s): Pt states that since around age 20 yrs, she would smoke lightly on social occasions at times. She has not smoked anything in one year. Past Drug Use History: None Reported - Past Family History Mother Family Medical History: Hypertension Additional Family Medical History / Comment(s): Mother is 50 yrs old. Father Family Medical History: Hyperlipidemia, Hypertension Additional Family Medical History / Comment(s): Father is 52 yrs old. Brother(s) Family Medical History: No Reported History Sister(s) Family Medical History: No Reported History Medications and Allergies Home Medications Medication Instructions Recorded Confirmed Type Pnv,Calcium 72/Iron/Folic Acid 1 tab PO HS 07/11/16 05/20/18 History [ Plus Tablet] Docusate [Colace] 250 mg PO DAILY 05/19/18 05/20/18 History valACYclovir [Valtrex] 500 mg PO DAILY 05/19/18 05/20/18 History Allergies Allergy/AdvReac Type Severity Reaction Status Date / Time vancomycin Allergy Rash/Hives Verified 05/20/18 06:41 Exam Vital Signs Temp Pulse Resp BP Pulse Ox 05/20/18 07:05 97.5 F L 90 18 124/86 98 Intake and Output 05/19/18 05/20/18 05/20/18 22:59 06:59 14:59 Other: Weight 131.088 kg See dictation under HPI please Results Result Diagrams: 05/20/18 06:43 Assessment and Plan Assessment: 39-6/7 weeks intrauterine , advanced cervical dilatation, morbid maternal obesity, large for gestational age fetus, history of HSV with no lesions or prodrome at this time. Plan: Oxytocin per hospital protocol. Penicillin G per hospital protocol. Close maternal and surveillance. Anticipating normal spontaneous vaginal delivery. Time with Patient: Less than 30
[2018-05-20] MEDS ORDERED: fentaNYL (PF) 50 MCG/ML 5 ML AMP ONE (11:09)
[2018-05-20] MEDS ORDERED: ROPIVACAINE 5MG/ML 20ML VIAL ONE (11:09)
[2018-05-20] MEDS ORDERED: SODIUM CHLORIDE 0.9% 100 ML BAG ONE (11:09)
[2018-05-20] MEDS: PENICILLIN G POTASSIUM 2,500,000 UNIT in DEXTROSE 5% IN WATER 100 ML IVPB SCH ×4 (11:33→20:49)
[2018-05-20] MEDS ORDERED: CITRIC ACID-SODIUM CITRATE 15 ML CUP PO ONE (14:09)
[2018-05-20] MEDS ORDERED: ceFAZolin 3 GM in SODIUM CHLORIDE 0.9% 100 ML IVPB ONE (14:09)
[2018-05-20] MEDS ORDERED: DEXAMETHASONE SOD PHOS (MDV) 100 MG/10 ML VIAL ONE (15:16)
[2018-05-20] MEDS ORDERED: MORPHINE SULFATE (PF) 0.3 MG/0.3 ML SYR ONE (15:16)
[2018-05-20] MEDS ORDERED: MIDAZOLAM 2 MG/2 ML VIAL ONE (15:16)
[2018-05-20] MEDS ORDERED: LIDOCAINE HCL/PF 20 MG/ML 10 ML AMP ONE (15:16)
[2018-05-20] MEDS ORDERED: NALBUPHINE 10 MG/ML (1 ML AMP) ONE (15:16)
[2018-05-20] MEDS ORDERED: ONDANSETRON 4 MG/2 ML VIAL ONE (15:16)
[2018-05-20] MEDS ORDERED: diphenhydrAMINE 50 MG/ML 1 ML VIAL ONE (15:16)
[2018-05-20] MEDS ORDERED: HYDROmorphone (PF) 1 MG/ML ONE (15:16)
[2018-05-20] MEDS ORDERED: LACTATED RINGERS 1,000 ML BAG IV ONE (15:16)
[2018-05-20] MEDS ORDERED: OXYTOCIN 10 UNIT/ML 1 ML VIAL ONE (15:16)
[2018-05-20] MEDS ORDERED: KETOROLAC 30 MG/ML 1 ML VIAL ONE (15:16)
[2018-05-20] MEDS ORDERED: PROPOFOL 10 MG/ML 20 ML VIAL IV ONE (15:16)
[2018-05-20] MEDS ORDERED: fentaNYL (PF) 50 MCG/ML 2 ML AMP ONE (15:16)
[2018-05-20] MEDS ORDERED: diphenhydrAMINE 25 MG CAP PO PRN (16:24)
[2018-05-20] MEDS ORDERED: METOCLOPRAMIDE 5 MG/ML 2 ML VIAL IVP PRN (16:24)
[2018-05-20] MEDS ORDERED: ACETAMINOPHEN TAB 325 MG TAB PO PRN (16:24)
[2018-05-20] MEDS ORDERED: ZOLPIDEM 5 MG TAB PO PRN (16:24)
[2018-05-20] MEDS ORDERED: diphenhydrAMINE 50 MG/ML 1 ML VIAL IVP PRN ×2 (16:24)
[2018-05-20] MEDS ORDERED: ONDANSETRON 4 MG/2 ML VIAL IVP PRN (16:24)
[2018-05-20] MEDS ORDERED: NALOXONE 0.4 MG/ML 1 ML VIAL IV PRN (16:24)
[2018-05-20] MEDS ORDERED: diphenhydrAMINE 50 MG CAP PO PRN (16:24)
--- NOTE | 2018-05-20 16:24 | P.OP ---
Date of Procedure: 05/20/18 Preoperative Diagnosis: 38-6/7 weeks intrauterine , morbid maternal obesity, large for gestational age fetus, arrest of dilatation and descent. Postoperative Diagnosis: Liveborn female , left occiput transverse position. Right paratubal cyst, removed and sent to pathology. Procedure(s) Performed: Primary low transverse uterine incision, excision right paratubal cyst. Anesthesia: GETA Surgeon: Leydi Reyes Tub Wash Operator #1: Fabiola Black Estimated Blood Loss (ml): 600 IV fluids (ml): 1,300 Urine output (ml): 250 Pathology: none sent (Right paratubal cyst) Condition: stable Disposition: PACU Description of Procedure: Patient labored throughout the day with the aid of an epidural analgesia. No cervical dilatation past 6 cm was noted, -2 station. Large for gestational age fetus was recognized. Arrest of dilatation and descent was noted, and decision was made to proceed with primary low transverse section. The risks benefits and alternatives were all discussed with the patient in detail. Antibiotics are given. Patient was brought to the OR suite and the epidural was "topped off". However, even after re-dosing, adequate anesthesia could not be obtained. Decision was made to proceed with general anesthetic. Gen. anesthesia was then given. The abdomen had been prepped and draped in the usual sterile fashion. Anne catheter was placed to direct drainage, and vaginal prep had been performed. When the patient was asleep, a low transverse skin incision was made. This was carried down through the subcutaneous tissue which was approximate 10 cm in depth. Fascia is isolated, scored, and extended bilaterally with curved Sadler scissors. Peritoneum is next identified and incised, no bowel or bladder involvement was noted. The bladder flap was placed over the dome of the bladder. The large disposable ring retractor was placed. A low transverse uterine incision was made in this is carried down through the myometrium. Upon entering the endometrial cavity. The incision was extended bluntly. The 's head was delivered in the left occiput transverse position. Patient was officially delivered of a liveborn female at 1151 hours. Umbilical cord was doubly clamped and ligated, she was handed to waiting nurses for evaluation where scores of 7 and 9 at one and 5 minutes respectively were given. The placenta delivered manually, it was inspected and noted to be intact with trivascular cord at 1552 hours. This time the uterus is externalized. Oxytocin is given. The uterus is swept clean with a sterile sponge to avoid any retained products of conception. The uterus is closed in a two-step fashion, first layer running locking with 0 Vicryl, second layer imbricated with 0 Vicryl suture as well. Hemostasis and approximation is excellent. In inspecting the tubes and ovaries, there is a hemorrhagic appearing right tubal cyst. It is removed with electrocautery and sent to pathology for evaluation. Otherwise both tubes and ovaries appear normal to inspection. The abdomen is suctioned with suction on guard and the uterus is gently placed back into the abdominal cavity. The incision is once again inspected and noted to be clean and dry. Peritoneum is allowed to close by secondary intention. Fascia is closed in a running stitch of 0 Vicryl with over ligation in the midline. The deep subcutaneous tissue is irrigated, inspected thoroughly, noted to be clean and dry. It is reapproximated with 3-0 Vicryl in a running fashion. 4-0 undyed Monocryl issues for final skin closure subcuticularly. Steri-Strips and Mastisol are applied to the wound. Urine is noted to be draining clear in the Anne tube. All sponge needle and enhancement counts are correct. Patient is brought back to the recovery room in very good condition with 100% O2 saturation, pulse 90, blood pressure 92/41.
[2018-05-20] MEDS: SENNOSIDES-DOCUSATE SODIUM 1 EACH TAB PO SCH ×2 (20:49→20:54)
[2018-05-20] MEDS: KETOROLAC 30 MG/ML 1 ML VIAL IVP PRN (20:55)
[2018-05-21] MEDS: PENICILLIN G POTASSIUM 2,500,000 UNIT in DEXTROSE 5% IN WATER 100 ML IVPB SCH ×4 (01:15→01:17)
[2018-05-21] MEDS: LACTATED RINGERS 1,000 ML IV SCH ×2 (01:15)
[2018-05-21] MEDS: KETOROLAC 30 MG/ML 1 ML VIAL IVP PRN ×3 (04:23→16:30)
--- NOTE | 2018-05-21 06:43 | P.PN ---
Subjective Progress Note Date: 05/21/18 Principal diagnosis: Postoperative day #1 Slept well, pain well managed. No complaints. Objective - Vital Signs Vital signs: Vital Signs Temp 98.6 F 05/21/18 04:00 Pulse 78 05/21/18 04:00 Resp 18 05/21/18 04:00 BP 150/75 05/21/18 04:00 Pulse Ox 97 05/20/18 18:44 Intake & Output 05/20/18 05/20/18 05/21/18 06:59 18:59 06:59 Intake Total 900 Output Total 1280 Balance -380 Weight 131.088 kg Intake: Oral 900 Output: Urine 1280 Other: # Voids 500 - Constitutional General appearance: Present: cooperative, morbidly obese - EENT Eyes: Present: PERRLA ENT: Present: hearing grossly normal - Respiratory Respiratory: bilateral: CTA - Cardiovascular Rhythm: regular - Gastrointestinal General gastrointestinal: Present: normal bowel sounds - Genitourinary Genitourinary Comment(s): Incision clean and dry, well approximated, Steri-Strips applied. Fundus firm, midline, mobile, 18-20 week size. - Integumentary Integumentary: Present: normal - Neurologic Neurologic: Present: CNII-XII intact - Musculoskeletal Musculoskeletal: Present: gait normal, strength equal bilaterally - Psychiatric Psychiatric: Present: A&O x's 3, appropriate affect, intact judgment & insight - Labs CBC & Chem 7: 05/20/18 06:43 Assessment and Plan Assessment: Doing well postoperative day #1 Plan: Advance diet and activity. Check morning CBC and DC IV if within normal range. Likely discharge home tomorrow. Time with Patient: Less than 30
[2018-05-21 08:45] LABS: Basophils % (A) 0 %; Eosinophils # (A) 0.1 k/uL (0-0.7); Eosinophils % (A) 0 %; HCT 38.3 % (34.0-46.0); HGB 12.4 gm/dL (11.4-16.0); Lymphocytes # (A) 1.6 k/uL (1.0-4.8); Lymphocytes % (A) 10 %; MCH 29.5 pg (25.0-35.0); MCHC 32.5 g/dL (31.0-37.0); MCV 90.8 fL (80.0-100.0); Mean Platelet Volume 8.6; Monocytes # (A) 0.9 k/uL (0-1.0); Monocytes % (A) 5 %; Neutrophils # (A) 12.9 k/uL (1.3-7.7); Neutrophils % (A) 81 %; Platelet Count 204 k/uL (150-450); RBC 4.21 m/uL (3.80-5.40); RDW 14.3 % (11.5-15.5)
[2018-05-21] MEDS: SIMETHICONE 80 MG CHEWABLE PO PRN ×2 (09:03→19:38)
[2018-05-21] MEDS: SENNOSIDES-DOCUSATE SODIUM 1 EACH TAB PO SCH ×2 (09:03→19:34)
[2018-05-21] MEDS: HYDROcodone/APAP 5-325MG 1 EACH TAB PO PRN (19:34)
[2018-05-21] MEDS: IBUPROFEN 600 MG TAB PO PRN (23:56)
[2018-05-22 01:22] VITALS: RESP 16
[2018-05-22] MEDS: HYDROcodone/APAP 5-325MG 1 EACH TAB PO PRN ×3 (02:20→11:03)
[2018-05-22] MEDS: SENNOSIDES-DOCUSATE SODIUM 1 EACH TAB PO SCH (08:13)
[2018-05-22] MEDS: IBUPROFEN 600 MG TAB PO PRN (08:14)
[2018-05-22 08:25] VITALS: BP 117/60; PULSE 70; TEMP 98.3
--- NOTE | 2018-05-22 09:47 | P.DS ---
Providers Date of admission: 05/20/18 06:08 Expected date of discharge: 05/22/18 Attending physician: Leydi Reyes Primary care physician: Stated None Hospital Course: This is a 33-year-old white female 3 para 0020 EDC 05/28/2018 at 38-6/7 weeks' gestation. Patient was admitted with advanced cervical dilatation, in early labor. Cervix was 6 cm on admission, is remarkable for positive herpes exposure, no prodrome or lesions at the time of admission. Patient's blood type is A+, rubella status immune, group B strep cultures positive. Please see my dictated history and physical for details. Patient was admitted and antibiotics were given per hospital protocol. She labored throughout the entire day, but had no further cervical dilatation or station. Decision was made to proceed with primary low transverse section. Patient delivered a liveborn female infant with scores of 7 and 9 at one and 5 minutes respectively. Infant weighed 9 lbs. 13 oz. or 4440 g. was found to be in the left occiput transverse position. Estimated blood loss recorded of 600 mL's. Please see my dictated delivery note for details. Postoperatively the patient has done well. This morning she is voiding, am bulating and passing flatus without difficulty. Vital signs are stable and she is afebrile. Fundus is firm and in the midline, symmetric and 18 week size. Extremities reveal trace edema. Her chest is clear in all katz. The incision is clean and dry, intact, Steri-Strips applied. Her vital signs have remained stable, and the is doing well. She is judged to be in good condition for discharge home. Patient will follow-up with me in the office for incision check in 2 weeks. She is reminded no intercourse, tampons or douching. She will use [id number] ibuprofen products, 200 mg pills, for every 8 hours as needed. She may alternate this with acetaminophen as needed. I've asked her to call me with any fevers shakes or chills, foul smelling or copious lochia, with the passage of large blood clots, with any pain not alleviated by ibuprofen, or indeed with any concerns. We have briefly discussed methods of contraception and we will discuss this further in the office. Hardy will follow-up with sap fico architect as recommended. Patient Condition at Discharge: Good Plan - Discharge Summary Discharge Rx Participant: No New Discharge Prescriptions: No Action Pnv,Calcium 72/Iron/Folic Acid [ Plus Tablet] 1 tab PO HS valACYclovir [Valtrex] 500 mg PO DAILY Docusate [Colace] 250 mg PO DAILY Discharge Medication List Pnv,Calcium 72/Iron/Folic Acid [ Plus Tablet] 1 tab PO HS 07/11/16 [History] Docusate [Colace] 250 mg PO DAILY 05/19/18 [History] valACYclovir [Valtrex] 500 mg PO DAILY 05/19/18 [History] Follow up Appointment(s)/Referral(s): Leydi Reyes MD [STAFF PHYSICIAN] - 2 Weeks
== END 2018-05-22 11:05 | disposition home or self-care (01) | DRG 787 ==
LOC: 4FBP 06:08
PROVIDERS: ADMIT Obstetrics & Gynecology; ATTEND Obstetrics & Gynecology
PROC: 0UB50ZX Excision of Right Fallopian Tube, Open Approach, Diagnostic (ICD-10-PCS; principal; 2018-05-20 15:00)
PROC: 10D00Z1 Extraction of Products of Conception, Low, Open Approach (ICD-10-PCS; principal; 2018-05-20 15:00)
DX: O62.0 Primary inadequate contractions (principal); O98.52 Other viral diseases complicating childbirth; O36.63X0 Maternal care for excessive fetal growth, third trimester, not applicable or unspecified; Z3A.39 39 weeks gestation of pregnancy; Z37.0 Single live birth; B00.9 Herpesviral infection, unspecified; O99.824 Streptococcus B carrier state complicating childbirth; O99.284 Endocrine, nutritional and metabolic diseases complicating childbirth; E28.2 Polycystic ovarian syndrome; N83.8 Other noninflammatory disorders of ovary, fallopian tube and broad ligament; O99.214 Obesity complicating childbirth; E66.01 Morbid (severe) obesity due to excess calories; O99.89 Other specified diseases and conditions complicating pregnancy, childbirth and the puerperium; Z79.84 Long term (current) use of oral hypoglycemic drugs; Z79.899 Other long term (current) drug therapy; Z88.1 Allergy status to other antibiotic agents; Z91.09 Other allergy status, other than to drugs and biological substances; Z82.49 Family history of ischemic heart disease and other diseases of the circulatory system; Z87.891 Personal history of nicotine dependence
CPT/HCPCS: 85025; 86850; 86900; 86901; 88304

== ENCOUNTER 2019-05-19 08:53 | Outpatient (CLI) | payer OTHER ==
[2019-05-19] MEDS ORDERED: BETAMET ACET-BETAMETH SOD PHOS 6 MG/ML MDV IM SCH (09:00)
== END 2019-05-19 09:15 | disposition home or self-care (01) ==
LOC: FBPOP 08:53
PROVIDERS: ATTEND Obstetrics & Gynecology
DX: Z09 Encounter for follow-up examination after completed treatment for conditions other than malignant neoplasm (principal); Z87.51 Personal history of pre-term labor
CPT/HCPCS: 96372; J0702

== ENCOUNTER 2019-05-20 08:49 | Outpatient (CLI) | payer OTHER ==
[2019-05-20] MEDS ORDERED: BETAMET ACET-BETAMETH SOD PHOS 6 MG/ML MDV IM ONE (09:00)
--- NOTE | 2019-05-22 09:27 | P.MSEPDOC ---
Presenting Problems - Arrival Data Date of Arrival on Unit: 05/20/19 Time of Arrival on Unit: 08:49 Mode of Transport: Ambulatory - Complaint OB-Reason for Admission/Chief Complaint: Celestone Injection Comment: orders to give injection and send home. Medical History - Information : 4 Para: 1 Term: 1 : 0 Abortions: Spontaneous or Elective: 2 Number of Living Children: 1 - Gestational Age Gestational Age by SRIKANTH (wks/days): 29 Weeks and 3 Days - History Complications: Prior Comment: hx of labor, delivery was full term. Review of Systems - Review of Systems Constitutional: No problems Breast: No problems ENT: No problems Cardiovascular: No problems Respiratory: No problems Gastrointestinal: No problems Genitourinary: No problems Musculoskeletal: No problems Neurological: No problems Skin: No problems Medical Screen Scoring (Pre) - Cervical Exam Dilation: Exam Deferred Effacement: Exam Deferred Membranes: Intact - Uterine Contractions Frequency: N/A Duration: N/A Intensity: N/A - Maternal Vital Signs Maternal Temperature: N/A Maternal Blood Pressure: N/A Signs of Preeclampsia: N/A Maternal Respirations: N/A - Maternal Trauma Maternal Trauma: N/A - Total Score - Baby A Total Score - Baby A: 0 - Total Score - Baby B Total Score - Baby B: 0 - Total Score - Baby C Total Score - Baby C: 0 - Level of Risk - Baby A Level of Risk - Baby A: Low (0-5) - Level of Risk - Baby B Level of Risk - Baby B: Low (0-5) - Level of Risk - Baby C Level of Risk - Baby C: Low (0-5) Physician Notification (Pre) - Physician Notified Physician Notified Date: 05/20/19 Physician Notified Time: 09:15 New Order Received: Yes - Notification Comment Comment: pt arrived with written orders to receive Celestone and send home. pt was seen by Dr Reyes in the office yesterday. Disposition - Disposition OB Disposition: Physician follow up in office, Triage, Discharge to home, Written follow up instructions reviewed Discharge Date: 05/20/19 Discharge Time: 09:15 I agree with the RN Medical Screening Exam: Yes Risk & Benefit of care provided described in d/c instruction: Yes Diagnosis: FALSE LABOR BEFORE 37 COMPLETED WEEKS OF GEST, THIRD TRI
== END 2019-05-20 09:15 | disposition home or self-care (01) ==
LOC: FBPOP 08:49
PROVIDERS: ATTEND Obstetrics & Gynecology
DX: O47.03 False labor before 37 completed weeks of gestation, third trimester (principal); Z3A.29 29 weeks gestation of pregnancy
CPT/HCPCS: 96372; J0702

== ENCOUNTER 2019-07-20 18:16 | Outpatient (CLI) | payer OTHER ==
[2019-07-20 19:27] VITALS: BP 123/69; PULSE 109; RESP 18; TEMP 98.4
--- NOTE | 2019-07-21 07:43 | P.MSEPDOC ---
Presenting Problems - Arrival Data Date of Arrival on Unit: 07/20/19 Time of Arrival on Unit: 18:16 Mode of Transport: Wheelchair - Complaint OB-Reason for Admission/Chief Complaint: Rule Out SROM Medical History - Information : 4 Para: 1 Term: 1 : 0 Abortions: Spontaneous or Elective: 0 Number of Living Children: 1 - Gestational Age Gestational Age by SRIKANTH (wks/days): 38 Weeks and 1 Days Review of Systems - Review of Systems Constitutional: No problems Breast: No problems ENT: No problems Cardiovascular: No problems Respiratory: No problems Gastrointestinal: No problems Genitourinary: No problems Musculoskeletal: No problems Neurological: No problems Skin: No problems Vital Signs - Temperature Temperature: 98.4 F Temperature Source: Temporal Artery Scan - Pulse Right Pulse Rate: 109 Pulse Assessment Method: Pulse Oximetry - Respirations Respiratory Rate: 18 Oxygen Delivery Method: Room Air - Blood Pressure Right Arm Blood Pressure: 123/69 Blood Pressure Mean: 87 Blood Pressure Source: Automatic Cuff Medical Screen Scoring (Pre) - Cervical Exam Dilation: 1-3 cm = 1 Effacement: More than 50% = 2 Membranes: Intact - Uterine Contractions Frequency: > 5 minutes apart = 1 Duration: > 40 seconds = 2 Intensity: N/A - Maternal Vital Signs Maternal Temperature: N/A Maternal Blood Pressure: N/A Signs of Preeclampsia: N/A Maternal Respirations: N/A - Maternal Trauma Maternal Trauma: N/A - Assessment - Baby A Baseline FHR: 135 Heart Rate - NICHD Category: Category I (Normal) = 0 NST: Reactive Position: N/A Station: N/A - Total Score - Baby A Total Score - Baby A: 6 - Total Score - Baby B Total Score - Baby B: 6 - Total Score - Baby C Total Score - Baby C: 6 - Level of Risk - Baby A Level of Risk - Baby A: Medium (6-9) - Level of Risk - Baby B Level of Risk - Baby B: Medium (6-9) - Level of Risk - Baby C Level of Risk - Baby C: Medium (6-9) Physician Notification (Pre) - Physician Notified Physician Notified Date: 07/20/19 Physician Notified Time: 19:15 New Order Received: Yes (Recheck cervix if no change pt clear for d/c home with instructions.) Medical Screen Scoring (Post) - Cervical Exam Dilation: 1-3 cm = 1 Effacement: More than 50% = 2 Membranes: Intact - Uterine Contractions Frequency: > 5 minutes apart = 1 Duration: > 40 seconds = 2 Intensity: N/A - Maternal Vital Signs Maternal Temperature: N/A Maternal Blood Pressure: N/A Signs of Preeclampsia: N/A Maternal Respirations: N/A - Pain Assessment Pain Location and Character: Abdomen Pain Scale Used: Numeric (1 - 10) Pain Intensity: 7 Pain Management Goal: 0 Pain Description: Cramping Pain Radiation Location: none Pain Frequency: Intermittent Pain Duration Units: Minutes Pain Behavior: Vocalization Pain Aggravating Factors: Contractions - Maternal Trauma Maternal Trauma: N/A - Assessment - Baby A Heart Rate: 135 Heart Rate - NICHD Category: Category I (Normal) = 0 NST: Reactive Position: N/A Station: N/A - Total Score Total Score - Baby A: 6 Total Score - Baby B: 6 Total Score - Baby C: 6 - Post Treatment Level of Risk Post Treatment Level of Risk - Baby A: Medium (6-9) Post Treatment Level of Risk - Baby B: Medium (6-9) Post Treatment Level of Risk - Baby C: Medium (6-9) Physician Notification (Post) - Physician Notified Physician Notified Date: 07/20/19 Physician Notified Time: 19:15 Physician/Practitioner Notified:: Dr. Pandey Spoke With: Dr. Pandey New Order Received: Yes (No cervical change with recheck and pt clear for d/c home with insturctions) Disposition - Disposition OB Disposition: Physician follow up in office, Discharge to home Discharge Date: 07/20/19 Discharge Time: 19:39 I agree with the RN Medical Screening Exam: Yes Risk & Benefit of care provided described in d/c instruction: Yes Diagnosis: FALSE LABOR AT OR AFTER 37 COMPLETED WEEKS OF GESTATION
== END 2019-07-20 19:39 | disposition home or self-care (01) ==
LOC: FBPOP 18:16
PROVIDERS: ATTEND Obstetrics & Gynecology
DX: O47.1 False labor at or after 37 completed weeks of gestation (principal); Z3A.38 38 weeks gestation of pregnancy
CPT/HCPCS: 59025; 84112; G0463; 99213

== ENCOUNTER → 2019-07-22 | Outpatient (CLI) | payer OTHER | END | disposition home or self-care (01) | LOC: LABWHC1 14:25 | PROVIDERS: ATTEND Obstetrics & Gynecology | DX: Z11.59 Encounter for screening for other viral diseases (principal) ==

== ENCOUNTER 2019-07-26 09:45 | Inpatient (IN) | payer OTHER ==
[2019-07-25 14:15] VITALS: BMI 47.3
[2019-07-26] MEDS ORDERED: CITRIC ACID-SODIUM CITRATE 15 ML CUP PO ONE (10:04)
[2019-07-26] MEDS ORDERED: ceFAZolin 3 GM in SODIUM CHLORIDE 0.9% 100 ML IVPB ONE (10:04)
[2019-07-26] MEDS ORDERED: LACTATED RINGERS 1,000 ML IV ONE (10:04)
[2019-07-26 11:10] LABS: Basophils % (A) 0 %; Eosinophils # (A) 0.1 k/uL (0-0.7); Eosinophils % (A) 1 %; HCT 42.2 % (34.0-46.0); Lymphocytes # (A) 1.8 k/uL (1.0-4.8); Lymphocytes % (A) 21 %; MCH 29.6 pg (25.0-35.0); MCHC 33.2 g/dL (31.0-37.0); MCV 89.1 fL (80.0-100.0); Mean Platelet Volume 9.8; Monocytes # (A) 0.4 k/uL (0-1.0); Monocytes % (A) 5 %; Neutrophils # (A) 5.8 k/uL (1.3-7.7); Neutrophils % (A) 70 %; Platelet Count 215 k/uL (150-450); RBC 4.74 m/uL (3.80-5.40); RDW 14.2 % (11.5-15.5); WBC 8.3 k/uL (3.8-10.6)
[2019-07-26] MEDS ORDERED: DEXAMETHASONE SOD PHOSPHATE 10 MG/ML 1 ML VIAL ONE (12:16)
[2019-07-26] MEDS ORDERED: diphenhydrAMINE 50 MG/ML 1 ML VIAL ONE (12:16)
[2019-07-26] MEDS ORDERED: GLYCOPYRROLATE 0.2 MG/ML 2 ML VIAL ONE (12:16)
[2019-07-26] MEDS ORDERED: ePHEDrine SULFATE/0.9% NACL/PF 50 MG/5 ML SYRINGE IV ONE (12:16)
[2019-07-26] MEDS ORDERED: METOCLOPRAMIDE 5 MG/ML 2 ML VIAL ONE (12:16)
[2019-07-26] MEDS ORDERED: KETOROLAC 30 MG/ML 1 ML VIAL ONE (12:16)
[2019-07-26] MEDS ORDERED: ONDANSETRON 4 MG/2 ML VIAL ONE (12:16)
[2019-07-26] MEDS ORDERED: OXYTOCIN 10 UNIT/ML 1 ML VIAL ONE (12:16)
[2019-07-26] MEDS ORDERED: MORPHINE SULFATE (PF) 0.3 MG/0.3 ML SYR ONE (12:16)
--- NOTE | 2019-07-26 13:18 | P.HPOB ---
History of Present Illness H&P Date: 07/26/19 This is a 34-year-old female 4 para 10-1 EDC 08/02/2019 at 39 weeks gestation. Patient presents for repeat section, denying vaginal bleeding or fluid leakage. She is having mild irregular contractions. Fetus is been active throughout the . She denies any lesions vaginally. history blood type is A+, rubella status immune. Urine culture, hepatitis B surface antigen, HIV testing, gonorrhea and chlamydia cultures, group B strep cultures all negative. One-hour Glucola 170, three-hour GTT consistent with gestational diabetes. 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 Past surgical history section May 2018, colonoscopy, tonsillectomy, wisdom teeth extracted. Current medications acyclovir 400 mg twice daily, vitamin daily, stool softener as needed. ALLERGIES include molds and vancomycin to which reports itching and hives. Family history hypertension, diabetes, thyroid disorder and breast cancer. Malignant ovarian neoplasm in an aunt. Social history patient is single, father of the baby is involved. She is never been a smoker. She denies alcohol or drug use. On exam patient is 5 foot 5 inches, 280 pounds, blood pressure 120/58, pulse 83, respirations 18, temperature 96.3. The general physical exam is within normal limits. The cervix is long and closed. heart rate consistent with reactive NST. Abdomen is obviously gravid with a fundal height of 41 cm. Infant vertex to Kris's maneuvers. Impression: 39 week intrauterine , gestational diabetes, history of HSV with no current lesions or prodrome. Plan: We will proceed with repeat low transverse section. Tubal ligation is offered and declined. All risks and benefits of the procedure are thoroughly discussed with the patient, and questions answered. Review of Systems Constitutional: Reports as per HPI Past Medical History Past Medical History: Pneumonia Additional Past Medical History / Comment(s): Recent URI x 4 weeks, constipation, hemorrhoids. History of Any Multi-Drug Resistant Organisms: None Reported Past Surgical History: Section, Tonsillectomy Additional Past Surgical History / Comment(s): Colonoscopy Past Anesthesia/Blood Transfusion Reactions: No Reported Reaction Past Psychological History: No Psychological Hx Reported Additional Psychological History / Comment(s): Pt resides with her fiancee. She is independent. Smoking Status: Never smoker Past Alcohol Use History: None Reported Additional Past Alcohol Use History / Comment(s): Pt states that since around age 20 yrs, she would smoke lightly on social occasions at times. She has not smoked anything in one year. Past Drug Use History: None Reported - Past Family History Mother Family Medical History: Hypertension Additional Family Medical History / Comment(s): Mother is 50 yrs old. Father Family Medical History: Hyperlipidemia, Hypertension Additional Family Medical History / Comment(s): Father is 52 yrs old. Brother(s) Family Medical History: No Reported History Sister(s) Family Medical History: No Reported History Medications and Allergies Home Medications Medication Instructions Recorded Confirmed Type Pnv,Calcium 72/Iron/Folic Acid 1 tab PO HS 07/11/16 07/26/19 History [ Plus Tablet] Docusate [Colace] 250 mg PO DAILY 05/19/18 07/26/19 History valACYclovir [Valtrex] 500 mg PO DAILY 05/19/18 07/26/19 History Allergies Allergy/AdvReac Type Severity Reaction Status Date / Time vancomycin Allergy Rash/Hives Verified 07/26/19 10:02 Exam Vital Signs Temp Pulse Resp BP 07/26/19 10:15 96.4 F L 83 16 120/58 Intake and Output 07/25/19 07/26/19 07/26/19 22:59 06:59 14:59 Other: Weight 127.006 kg see dictation, please Results Result Diagrams: 07/26/19 10:25 Assessment and Plan Assessment: 39 week intrauterine , gestational diabetes, history of HSV with no current prodromes or lesions. Previous section, requesting repeat C- section. Plan: Antibiotic prophylaxis. For repeat low transverse section utilizing spinal analgesia. All questions answered. Time with Patient: Less than 30
[2019-07-26] MEDS ORDERED: diphenhydrAMINE 25 MG CAP PO PRN (13:24)
[2019-07-26] MEDS ORDERED: diphenhydrAMINE 50 MG CAP PO PRN (13:24)
[2019-07-26] MEDS ORDERED: SIMETHICONE 80 MG CHEWABLE PO PRN (13:24)
[2019-07-26] MEDS ORDERED: ACETAMINOPHEN TAB 325 MG TAB PO PRN (13:24)
[2019-07-26] MEDS ORDERED: ONDANSETRON 4 MG/2 ML VIAL IVP PRN (13:24)
[2019-07-26] MEDS ORDERED: ZOLPIDEM 5 MG TAB PO PRN (13:24)
[2019-07-26] MEDS ORDERED: NALOXONE 0.4 MG/ML 1 ML VIAL IV PRN (13:24)
[2019-07-26] MEDS ORDERED: METOCLOPRAMIDE 5 MG/ML 2 ML VIAL IVP PRN (13:24)
[2019-07-26] MEDS ORDERED: diphenhydrAMINE 50 MG/ML 1 ML VIAL IVP PRN ×2 (13:24)
--- NOTE | 2019-07-26 13:24 | P.OP ---
Date of Procedure: 07/26/19 Preoperative Diagnosis: 39 week intrauterine , morbid obesity, previous section declining , history of HSV with no current lesions or prodrome. Postoperative Diagnosis: Nuchal cord 1, left occiput transverse position, liveborn male . Procedure(s) Performed: Repeat low transverse section Anesthesia: spinal Surgeon: Leydi Reyes Suction Dredge Dumping Supervisor #1: Fabiola Black Estimated Blood Loss (ml): 300 IV fluids (ml): 600 Urine output (ml): 300 Pathology: other (placenta) Condition: stable Disposition: PACU Description of Procedure: Patient is brought back to the operating suite where a spinal with Duramorph is administered. She's placed in the dorsal supine position with left lateral uterine displacement. 3 g of Ancef are given. The appropriate timeout is performed to assure proper patient and procedural identification. Anne catheter placed to direct drainage. The abdomen is prepped and draped in usual sterile fashion. The analgesia is checked and noted to be adequate. A repeat low transverse skin incision is made and carried down through the subcutaneous tissue which is approximate 10 cm in depth. Fascia is isolated, scored, and extended bilaterally with curved Sadler scissors. Peritoneum is next identified and incised, there is no bowel or bladder involvement. The large ring disposable retractor is placed. Metzenbaum scissors are used and the bladder flap is created, at all times bladder is Well from the operative field to avoid bladder and/or ureteral injury. A repeat low transverse uterine incision is made in this is carried down through the myometrium. The incision is extended bluntly. Artificial amniorrhexis reveals light conium stained fluid. Infant's head is delivered in the left occiput transverse position. There was a nuchal cord 1 that was reduced. The oropharynx, nasopharynx, and external nares are bulb suctioned on the abdomen. Patient is officially delivered of a liveborn male at 1236 hours. Umbilical cord is doubly clamped and ligated, he is handed to waiting nurses for evaluation where scores of 7 and 9 at one and 5 minutes respectively are given. The placenta is delivered manually, it is inspected and noted to be intact with trivascular cord. Uterus is then externalized and swept clean with a sterile sponge to avoid any retained products of conception. The edges of the incision are grasped with Russ clamps. The uterus is closed in a two-step fashion, first layer running locking with 0 Vicryl, second layer imbricated with 0 Vicryl. Excellent reapproximation is noted. Deep in the left inferior most aspect of the lower uterine segment, behind the bladder, the tissue appears somewhat raw. There is no active bleeding noted, however FloSeal is placed in this area to assure good hemostasis. The bladder is allowed to heal by secondary intention. Bilateral gutters are inspected and cleaned. All areas are hemostatically intact. Bilateral tubes and ovaries appeared normal. Please note that the abdomen is suctioned posterior to the uterus prior to placing it back into the abdominal cavity. Peritoneum is allowed to close by secondary intention. Fascia is closed in a running stitch of 0 Vicryl with over ligation in the midline. Subcutaneous tissue is irrigated, noted to be clean and dry. It is reapproximated with 3-0 Vicryl in a running stitch. 4-0 undyed Monocryl is used for final subcuticular closure. Steri-Strips and Mastisol are applied to the wound. Uterus is massaged. Anne is noted to be draining clear urine. Patient is brought back to recovery room in very good condition with stable vital signs including a pulse of 85, blood pressure 138/35, 98% O2 saturation. Patient is requesting circumcision for her infant son.
[2019-07-26] MEDS: LACTATED RINGERS 1,000 ML IV SCH ×2 (14:58→22:14)
[2019-07-26] MEDS: SENNOSIDES-DOCUSATE SODIUM 1 EACH TAB PO SCH (20:40)
[2019-07-26] MEDS: KETOROLAC 30 MG/ML 1 ML VIAL IVP PRN (20:41)
[2019-07-27] MEDS: KETOROLAC 30 MG/ML 1 ML VIAL IVP PRN ×2 (04:41→15:21)
--- NOTE | 2019-07-27 06:38 | P.PN ---
Progress Note - Text Progress Note Date: 07/27/19 Postoperative day 1 status post section under spinal anesthesia and in trathecal Duramorph for postoperative analgesia.The patient is doing well, there is mild generalized skin itching. There are no other anesthesia related complications. The patient denies any paresthesia or weakness in the lower extremities. Further management as per the patient primary team.
--- NOTE | 2019-07-27 07:19 | P.PN ---
Subjective Progress Note Date: 07/27/19 Principal diagnosis: Postoperative day #1 Objective - Vital Signs Vital signs: Vital Signs Temp 98.5 F 07/27/19 04:00 Pulse 71 07/27/19 04:00 Resp 16 07/27/19 04:00 BP 114/73 07/27/19 04:00 Pulse Ox 98 07/27/19 00:00 Intake & Output 07/26/19 07/27/19 07/27/19 18:59 06:59 18:59 Intake Total 600 Output Total 400 1200 Balance -400 -600 Weight 127.006 kg Intake: Oral 600 Output: Urine 400 1200 Uretheral (Anne) 1100 - Constitutional General appearance: Present: morbidly obese - EENT Eyes: Present: PERRLA ENT: Present: hearing grossly normal - Neck Neck: Present: normal ROM - Respiratory Respiratory: bilateral: CTA - Cardiovascular Rhythm: regular - Gastrointestinal General gastrointestinal: Present: normal bowel sounds - Integumentary Integumentary: Present: normal - Neurologic Neurologic: Present: CNII-XII intact - Musculoskeletal Musculoskeletal: Present: gait normal, strength equal bilaterally - Psychiatric Psychiatric: Present: A&O x's 3, appropriate affect, intact judgment & insight - Labs CBC & Chem 7: 07/26/19 10:25 Assessment and Plan Assessment: Doing well post operative day #1 Plan: Advance diet and activity. Circumcision now. Likely discharge home tomorrow. Time with Patient: Less than 30
[2019-07-27] MEDS: SENNOSIDES-DOCUSATE SODIUM 1 EACH TAB PO SCH ×2 (07:32→19:41)
[2019-07-27 08:10] LABS: Basophils % (A) 0 %; Eosinophils # (A) 0.1 k/uL (0-0.7); Eosinophils % (A) 1 %; HCT 38.2 % (34.0-46.0); HGB 12.6 gm/dL (11.4-16.0); Lymphocytes # (A) 1.5 k/uL (1.0-4.8); Lymphocytes % (A) 11 %; MCH 29.9 pg (25.0-35.0); MCHC 33.1 g/dL (31.0-37.0); MCV 90.3 fL (80.0-100.0); Mean Platelet Volume 9.4; Monocytes # (A) 0.7 k/uL (0-1.0); Monocytes % (A) 5 %; Neutrophils # (A) 11.3 k/uL (1.3-7.7); Neutrophils % (A) 82 %; Platelet Count 224 k/uL (150-450); RBC 4.23 m/uL (3.80-5.40); RDW 14.3 % (11.5-15.5); WBC 13.8 k/uL (3.8-10.6)
[2019-07-27] MEDS: IBUPROFEN 600 MG TAB PO PRN (10:27)
[2019-07-27 16:30] VITALS: RESP 16
[2019-07-27] MEDS ORDERED: HYDROcodone/APAP 5-325MG 1 EACH TAB PO PRN (18:00)
[2019-07-27] MEDS: HYDROcodone/APAP 7.5-325MG 1 EACH TAB PO PRN ×2 (18:13→23:25)
[2019-07-27] MEDS: LACTATED RINGERS 1,000 ML IV SCH (19:55)
[2019-07-28] MEDS: HYDROcodone/APAP 7.5-325MG 1 EACH TAB PO PRN (05:05)
--- NOTE | 2019-07-28 07:56 | P.DS ---
Providers Date of admission: 07/26/19 09:45 Expected date of discharge: 07/28/19 Attending physician: Leydi Reyes Primary care physician: Stated None Hospital Course: This is a 34-year-old female 4 para 10-1 EDC 08/02/2019 at 39 weeks gestation. Patient presented for repeat low transverse section her was remarkable for negative group B strep cultures, blood type A positive, rubella status immune, positive gestational diabetes with reasonably good diet control. Please see admitting history and physical for details. Tubal ligation was offered and declined. Patient underwent a repeat low transverse section under my care. She gave to a liveborn male with scores of 7 and 9 at one and 5 minutes respectively. He was in the left occiput transverse position, there was a nuchal cord 1, and an estimated blood loss recorded of 300 mL's. Infant weight 3940 g or 8 lbs. 11 oz. Please see my dictated delivery note for details. This morning the patient is doing well. She is voiding, ambulate in, passing flatus without difficulty. Vital signs are stable and she is afebrile. Fundus is firm in the midline, symmetric and 18 week size. Extremities are negative for edema. Chest is clear in all katz. Incision is clean and dry, intact, Steri-Strips applied. Breasts are not engorged. Patient is being discharged home today in good condition. Circumcision has been performed on her baby. She will follow-up in the office me in 2 weeks. I reminded her no intercourse, tampons or douching. She will use [place], one pill every 6 hours as needed for pain. I've encouraged that she transition into ibuprofen products, Advil or Aleve. She will call with any fevers shakes or chills, foul smelling or copious lochia, with the passage of large blood clots, with any issues breast-feeding, or indeed with any concerns. Patient Condition at Discharge: Good Plan - Discharge Summary Discharge Rx Participant: Yes New Discharge Prescriptions: No Action Pnv,Calcium 72/Iron/Folic Acid [ Plus Tablet] 1 tab PO HS valACYclovir [Valtrex] 500 mg PO DAILY Docusate [Colace] 250 mg PO DAILY Discharge Medication List Pnv,Calcium 72/Iron/Folic Acid [ Plus Tablet] 1 tab PO HS 07/11/16 [History] Docusate [Colace] 250 mg PO DAILY 05/19/18 [History] valACYclovir [Valtrex] 500 mg PO DAILY 05/19/18 [History] Follow up Appointment(s)/Referral(s): Leydi Reyes MD [STAFF PHYSICIAN] - 2 Weeks Discharge Disposition: HOME SELF-CARE
[2019-07-28] MEDS: SENNOSIDES-DOCUSATE SODIUM 1 EACH TAB PO SCH (07:59)
[2019-07-28] MEDS: IBUPROFEN 600 MG TAB PO PRN (07:59)
[2019-07-28 08:36] VITALS: BP 121/77; PULSE 105; TEMP 97.9
== END 2019-07-28 09:30 | disposition home or self-care (01) | DRG 787 ==
LOC: 4FBP 09:45
PROVIDERS: ADMIT Obstetrics & Gynecology; ATTEND Obstetrics & Gynecology
PROC: 10D00Z1 Extraction of Products of Conception, Low, Open Approach (ICD-10-PCS; principal; 2019-07-26 12:00)
DX: O34.211 Maternal care for low transverse scar from previous cesarean delivery (principal); O98.52 Other viral diseases complicating childbirth; O99.834 Other infection carrier state complicating childbirth; O69.81X0 Labor and delivery complicated by cord around neck, without compression, not applicable or unspecified; O24.420 Gestational diabetes mellitus in childbirth, diet controlled; O99.214 Obesity complicating childbirth; O99.284 Endocrine, nutritional and metabolic diseases complicating childbirth; E28.2 Polycystic ovarian syndrome; B00.9 Herpesviral infection, unspecified; Z37.0 Single live birth; Z3A.39 39 weeks gestation of pregnancy; Z87.01 Personal history of pneumonia (recurrent); Z88.1 Allergy status to other antibiotic agents; Z79.899 Other long term (current) drug therapy; Z80.3 Family history of malignant neoplasm of breast; Z82.49 Family history of ischemic heart disease and other diseases of the circulatory system; Z83.3 Family history of diabetes mellitus; Z83.49 Family history of other endocrine, nutritional and metabolic diseases; Z80.41 Family history of malignant neoplasm of ovary
CPT/HCPCS: 85025; 86850; 86900; 86901; 88307

== ENCOUNTER → 2020-05-25 | Outpatient (CLI) | payer OTHER ==
--- NOTE | 2020-05-25 15:56 | MR ---
EXAMINATION TYPE: MR knee LT wo con DATE OF EXAM: 05/25/2020 COMPARISON: None. HISTORY: Left knee pain and swelling, S/P fall March 22. Old bucket handle tear lateral meniscus p er order. TECHNIQUE: Multiplanar, multisequence imaging of the left knee is performed without IV contrast. FINDINGS: MEDIAL MENISCUS: Anterior and posterior horns are intact without tear. LATERAL MENISCUS: Anterior and posterior horns are intact without tear. CRUCIATE LIGAMENTS: The posterior cruciate ligament is intact. Normal anterior cruciate ligament is n ot visualized some remnant proximal low signal fragment is seen. Increased signal in the visualized m id to distal 80%. Significant tear is present. COLLATERAL LIGAMENTS: The medial collateral ligament and lateral collateral ligament complex are int act and unremarkable. EXTENSOR MECHANISM: Visualized quadriceps and patellar tendons are intact. EFFUSION: There is moderate size suprapatellar joint effusion. POPLITEAL CYST: No popliteal/carlson cyst. TRICOMPARTMENT SPACES: Mild narrowing patellofemoral compartment. Mild spurring patellofemoral compar tment. CARTILAGE: Tricompartment articular cartilage maintained. No full thickness cartilaginous loss seen. BONE MARROW SIGNAL: No focal abnormal marrow signal is appreciated. OTHER: Posterior ossified fabellae incidentally noted. IMPRESSION: Significant ACL tear. No meniscal tear. Moderate-size suprapatellar joint effusion.
== END | disposition home or self-care (01) ==
LOC: RADMRIMAIN 14:15
PROVIDERS: ATTEND Internal Medicine
DX: S83.512A Sprain of anterior cruciate ligament of left knee, initial encounter (principal)

== ENCOUNTER 2020-09-28 06:47 | Day surgery (SDC) | payer OTHER ==
[2020-09-25 16:07] VITALS: BMI 43.7
--- NOTE | 2020-09-27 11:44 | HP ---
HISTORY AND PHYSICAL CHIEF COMPLAINT: Left knee pain. 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 She notes persistent pain, swelling and instability ever since. She denies previous problems. Occasionally it gives out. Past medical history is otherwise negative. CURRENT MEDICATIONS: Adipex and Motrin along with Tylenol. ALLERGIES: She has allergies to VANCOMYCIN. FAMILY HISTORY: Noncontributory. SOCIAL HISTORY: Negative for current tobacco or alcohol use PAST SURGICAL HISTORY: Surgical history is significant for a section. REVIEW OF SYSTEMS: Sixteen-point review of systems is otherwise reviewed and is noncontributory. PHYSICAL EXAMINATION: On examination, the patient is approximately 5 feet 5 inches, 260 pounds of endomorphic habitus. HEENT exam is nonfocal. Neck is supple. She has painless passive motion of the left hip. Straight-leg raise is negative. Active motion of the left knee is minus 8 to 125 degrees of flexion. She has mild effusion. She is tender about the lateral joint line. Christine's 1+ with a positive pivot shift. Mckayla's elicits lateral pain. Her distal neurovascular exam appears intact in the left lower extremity. MRI report of 05/25/2020 of the left knee shows evidence of an ACL rupture. IMPRESSION: 1. Internal derangement of left knee with ACL rupture. 2. Obesity. RECOMMENDATIONS: I talked to the patient at length regarding her condition along with treatment options. At this point she is having persistent pain and mechanical symptoms despite previous conservative measures. After thorough discussion, she elected to proceed with surgery. We will plan to proceed to arthroscopic evaluation with probable ACL debridement. At this point we will not consider reconstruction. We will likely perform that as an outpatient procedure. Risks and benefits were discussed at length in layman's terms. MMODL / IJN: [id number] /
[~2020-09-28 06:47] MED LIST changes: -BETAMET ACET-BETAMETH SOD PHOS 6 MG/ML VIAL IM SCH; +DEXAMETHASONE SOD PHOSPHATE 4 MG/ML 1 ML VIAL IV ONE; +LACTATED RINGERS 1,000 ML IV SCH; +LIDOCAINE 1% (10MG/ML) FOR IV START INTRADERMA PRN; +MIDAZOLAM 2 MG/2 ML VIAL IV PRN; +ONDANSETRON 4 MG/2 ML VIAL IVP ONE
[2020-09-28 07:26] VITALS: RESP 16
[2020-09-28] MEDS ORDERED: fentaNYL (PF) 50 MCG/ML 2 ML AMP ONE (07:56)
[2020-09-28] MEDS ORDERED: PROPOFOL 10 MG/ML 20 ML VIAL IV ONE (07:56)
[2020-09-28] MEDS ORDERED: LIDOCAINE 1% INJ 10MG/ML (20 ML MDV) ONE (07:56)
[2020-09-28] MEDS ORDERED: KETOROLAC 15 MG/ML 1 ML VIAL ONE (07:56)
[2020-09-28] MEDS ORDERED: MIDAZOLAM 2 MG/2 ML VIAL ONE (07:56)
[2020-09-28] MEDS ORDERED: EPINEPHrine (PF) 1 ML in SODIUM CHLORIDE 0.9% IRRIGATIO 3,000 ML IRRIGATION ONE ×4 (08:00)
--- NOTE | 2020-09-28 08:37 | P.OP ---
Date of Procedure: 09/28/20 Preoperative Diagnosis: Left knee internal derangement Postoperative Diagnosis: Left knee partial ACL sprain Procedure(s) Performed: Left knee diagnostic arthroscopy with ACL debridement Anesthesia: UZIEL Surgeon: Antione Burris Estimated Blood Loss (ml): 10 Pathology: none sent Condition: stable Disposition: PACU Indications for Procedure: The patient's a 35-year-old female presents after a recent injury with persistent left knee pain and mechanical symptoms despite attempted conservative measures. Clinically and by MRI she was noted to have evidence of a partial ACL rupture. Operative options were discussed including arthroscopic partial debridement versus ACL reconstruction. At this point we were not planning on reconstruction. A discussion of the risks and benefits of operative intervention was made with patient. She opted to proceed. Operative risks to include infection, neurovascular injury, development of blood clots, possible incomplete resolution of symptoms, possible worsening symptoms and need for subsequent procedures was discussed. Informed consent was obtained. Operative Findings: As below Description of Procedure: The patient was brought to the operating room, and after induction of general anesthesia examined the left knee. Collaterals were stable, Christine was 1+ with a firm endpoint, and posterior drawer was negative. The left lower extremity was prepped and draped in a normal fashion. A superior lateral portal was made through a 3 mm skin incision superior and lateral to the patella. This was used for outflow. A lateral portal was made through a 5 mm vertical skin incision lateral to the patella tendon above the joint line. Diagnostic arthroscopy was performed. On inspection of the medial compartment, no significant cartilage or meniscal pathology was noted. On inspection of the notch, the anterior cruciate ligament appeared to be partially ruptured off its tibial attachment. There was significant impingement of the soft tissue anteriorly. This tissue w as debrided back to a stable base with a motorized shaver. The remaining anterior cruciate ligament appeared to be intact and attached to the lateral femoral wall.. On inspection of the lateral compartment, no significant meniscal or cartilage pathology was noted. On inspection of the patellofemoral articulation, there was chondral fibrillation however no loose cartilage fragments. The gutters were clear debris. The knee was then thoroughly irrigated. The portals were closed with Steri-Strips. A sterile dressing was applied in addition to a compression stocking. The patient was awoken from general anesthesia and transferred to recovery room in good condition. Blood loss was estimated at 10 mL. No complications were incurred.
[2020-09-28 08:47] VITALS: TEMP 97.2
[2020-09-28] MEDS: HYDROmorphone 0.5 MG/0.5 ML SYRINGE IVP PRN ×4 (08:47→09:15)
[2020-09-28] MEDS ORDERED: HYDROcodone/APAP 7.5-325MG 1 EACH TAB PO ONE (09:45)
[2020-09-28] MEDS ORDERED: HYDROcodone/APAP 7.5-325MG 1 EACH TAB ONE (09:49)
[2020-09-28] MEDS ORDERED: ONDANSETRON 4 MG/2 ML VIAL ONE (09:52)
[2020-09-28] MEDS ORDERED: ONDANSETRON 4 MG/2 ML VIAL IVP ONE (09:55)
[2020-09-28 09:57] VITALS: PULSE 64
[2020-09-28 09:58] VITALS: BP 121/71
== END 2020-09-28 10:37 | disposition home or self-care (01) ==
LOC: OR 06:47
PROVIDERS: ATTEND Orthopaedic Surgery
DX: S83.512A Sprain of anterior cruciate ligament of left knee, initial encounter (principal); Z79.899 Other long term (current) drug therapy; Z88.1 Allergy status to other antibiotic agents; E66.01 Morbid (severe) obesity due to excess calories; Z68.41 Body mass index [BMI] 40.0-44.9, adult
CPT/HCPCS: 29999; 81025; J2250; J1100; J0690; J2405; J0171; J2001; J3010; J1885; J2704; J1170

== ENCOUNTER → 2021-05-27 | Outpatient (CLI) | payer OTHER ==
--- NOTE | 2021-05-27 08:33 | XR ---
EXAMINATION TYPE: XR hand complete RT DATE OF EXAM: 05/27/2021 CLINICAL HISTORY: pain TECHNIQUE: Frontal, lateral and oblique images of the right hand are obtained. COMPARISON: None. FINDINGS: There is no acute fracture/dislocation evident. The joint spaces appear within normal limi ts. The overlying soft tissue appears unremarkable. IMPRESSION: There is no acute fracture or dislocation ICD 10 NO FRACTURE, INITIAL EVALUATION
--- NOTE | 2021-05-27 09:01 | XR ---
EXAMINATION TYPE: XR foot complete RT DATE OF EXAM: 05/27/2021 CLINICAL HISTORY: pain TECHNIQUE: Frontal, lateral and oblique images of the right foot are obtained. COMPARISON: None. FINDINGS: There is no acute fracture/dislocation evident. The joint spaces appear within normal davis its. The overlying soft tissue appears unremarkable. IMPRESSION: There is no acute fracture or dislocation. ICD 10 NO FRACTURE, INITIAL EVALUATION
== END | disposition home or self-care (01) ==
LOC: RADXRMAIN 08:09
PROVIDERS: ATTEND Internal Medicine
DX: M25.541 Pain in joints of right hand (principal); M79.644 Pain in right finger(s); M79.671 Pain in right foot

== ENCOUNTER → 2022-01-28 | Outpatient (CLI) | payer OTHER ==
--- NOTE | 2022-03-07 08:52 | EM ---
EVENT MONITOR STUDY PERFORMED: A 30-day event monitor. This event monitor reveals sinus rhythm with episodes of sinus tachycardia. We did not document significant arrhythmic events in the rhythm strips that was provided to me for interpretation. CONCLUSION: This event monitor shows sinus rhythm with episodes of sinus tachycardia. The maximum heart rate was around 153 beats per minute. MMODL / ANDRZEJN: [id number] /
== END | disposition home or self-care (01) ==
LOC: RADECHMAIN 12:08
PROVIDERS: ATTEND Internal Medicine
DX: R00.0 Tachycardia, unspecified (principal); R00.2 Palpitations
CPT/HCPCS: 93270

== ENCOUNTER → 2023-01-14 | Outpatient (CLI) | payer OTHER ==
--- NOTE | 2023-01-14 09:22 | NM ---
EXAMINATION TYPE: NM hepatobiliary w EF DATE OF EXAM: 01/14/2023 COMPARISON: NONE INDICATION: Gastroesophageal reflux with esophagitis TECHNIQUE: After the intravenous administration of 4.9 mCi Tc 99m Mebrofenin hepatobiliary scintigrap hy is performed. Images were obtained immediately post injection. FINDINGS: There is prompt uptake and excretion of radiotracer by the liver. Extrahepatic ducts are identified at 2 minutes. The gallbladder is visualized within 2 minutes. Small bowel activity is noted within 16 minutes. At one hour 8 ounces of oral ensure plus is given to mimic CCK and gallbladder ejection fraction is c alculated at the T1 %, which is in the normal range. (Normal >35% and <80%.). IMPRESSION: 1. Normal hepatobiliary scan
== END | disposition home or self-care (01) ==
LOC: RADNMMAIN 06:59
PROVIDERS: ATTEND Internal Medicine
DX: K21.00 Gastro-esophageal reflux disease with esophagitis, without bleeding (principal)
CPT/HCPCS: 78226; A9537

== ENCOUNTER 2023-02-23 19:22 | Emergency (ER) | payer OTHER ==
[2023-02-23 19:48] VITALS: RESP 20; TEMP 98.4
[2023-02-23] MEDS ORDERED: LIDOCAINE 1% INJ 10MG/ML (20 ML MDV) SQ ONE (19:52)
--- NOTE | 2023-02-23 20:29 | ED ---
Skin/Abscess/FB HPI - General Chief complaint: Skin/Abscess/Foreign Body Stated complaint: Cyst lower extremities Time Seen by Provider: 02/23/23 19:40 Source: patient Mode of arrival: ambulatory Limitations: no limitations - History of Present Illness Initial comments: 37-year-old female presenting with chief complaint of abscess to the labia. Filiberto jackson states that she has had progressive pain and swelling to the left sided labia. Yesterday because pain was increasing she was seen in urgent care and started on Bactrim. She was told to come to the ER if this increased in size or if the pain increased. She states that today the wound is substantially bigger. It is not draining. No fevers or chills. No nausea or vomiting. - Related Data Home Medications Medication Instructions Recorded Confirmed Albuterol Inhaler [Ventolin Hfa 1 puff INHALATION DAILY PRN 09/25/20 09/28/20 Inhaler] Etonogestrel [Nexplanon] 1 dose SQ DIRECTED 09/25/20 09/25/20 Previous Rx's Medication Instructions Recorded HYDROcodone/APAP 7.5-325MG [Dana 1 each PO Q6HR PRN #21 tab 09/28/20 7.5] Allergies Allergy/AdvReac Type Severity Reaction Status Date / Time vancomycin Allergy Rash/Hives Verified 09/28/20 07:27 Review of Systems ROS Statement: Those systems with pertinent positive or pertinent negative responses have been documented in the HPI. ROS Other: All systems not noted in ROS Statement are negative. Past Medical History Past Medical History: Asthma, Pneumonia Additional Past Medical History / Comment(s): constipation, hemorrhoids. History of Any Multi-Drug Resistant Organisms: None Reported Past Surgical History: Section, Tonsillectomy Additional Past Surgical History / Comment(s): Colonoscopy. c/s x2 Past Anesthesia/Blood Transfusion Reactions: Previous Problems w/ Anesthesia, Postoperative Nausea & Vomiting (PONV) Additional Past Anesthesia/Blood Transfusion Reaction / Comment(s): 1st c/s had epidural dosed up for c/s experienced severe vomiting required general anesthesia. 2nd c/s scheduled given spinal began vomiting and then heart rate and blood pressure dropped Past Psychological History: No Psychological Hx Reported Smoking Status: Never smoker Past Alcohol Use History: Occasional Past Drug Use History: None Reported - Past Family History Mother Family Medical History: Hypertension Additional Family Medical History / Comment(s): Mother is 50 yrs old. Father Family Medical History: Hyperlipidemia, Hypertension Additional Family Medical History / Comment(s): Father is 52 yrs old. Brother(s) Family Medical History: No Reported History Sister(s) Family Medical History: No Reported History General Exam Limitations: no limitations General appearance: alert, in no apparent distress Head exam: Present: atraumatic, normocephalic Eye exam: Present: normal appearance Neck exam: Present: normal inspection Respiratory exam: Absent: respiratory distress Cardiovascular Exam: Present: regular rate External exam: Present: other (Abscess noted to the left labia majora) Extremities exam: Present: normal inspection Neurological exam: Present: alert, oriented X3 Psychiatric exam: Present: normal affect, normal mood Course Vital Signs 02/23/23 02/23/23 19:30 20:39 Temperature 98.4 F Pulse Rate 87 91 Respiratory 20 20 Rate Blood Pressure 126/75 117/85 O2 Sat by Pulse 98 98 Oximetry Medical Decision Making - Medical Decision Making Was pt. sent in by a medical professional or institution (Dr. PA, ASSET ACCOUNTANT, urgent care, hospital, or senior living...) When possible be specific @ -No Did you speak to anyone other than the patient for history (EMS, parent, family, police, friend...)? What history was obtained from this source @ -No Did you review nursing and triage notes (agree or disagree)? Why? @ -I reviewed and agree with nursing and triage notes Were old charts reviewed (outside hosp., previous admission, EMS record, old EKG, old radiological studies, urgent care reports/EKG's, senior living records)? Report findings @ -No old charts were reviewed Differential Diagnosis (chest pain, altered mental status, abdominal pain women, abdominal pain men, vaginal bleeding, weakness, fever, dyspnea, syncope, headache, dizziness, GI bleed, back pain, seizure, CVA, palpatations, mental health, musculoskeletal)? @ -Differential includes abscess, cyst, ALLERGIC reaction, this is not an all inclusive list EKG interpreted by me (3pts min.). @ -As above X-rays interpreted by me (1pt min.). @ -None done CT interpreted by me (1pt min.). @ -None done U/S interpreted by me (1pt. min.). @ -None done What testing was considered but not performed or refused? (CT, X-rays, U/S, labs)? Why? @ -None What meds were considered but not given or refused? Why? @ -None Did you discuss the management of the patient with other professionals (professionals i.e. , PA, ASSET ACCOUNTANT, lab, RT, psych nurse, social studies department chair, programs director, teacher, consumer safety officer, case checker)? Give summary @ -No Was smoking cessation discussed for >3mins.? @ -No Was critical care preformed (if so, how long)? @ -No Were there social determinants of health that impacted care today? How? (Homelessness, low income, unemployed, alcoholism, drug addiction, transportation, low edu. Level, literacy, decrease access to med. care, assisted, rehab)? @ -No Was there de-escalation of care discussed even if they declined (Discuss DNR or withdrawal of care, Hospice)? DNR status @ -No What co-morbidities impacted this encounter? (DM, HTN, Smoking, COPD, CAD, Cancer, CVA, ARF, Chemo, Hep., AIDS, mental health diagnosis, sleep apnea, morbid obesity)? @ -None Was patient admitted / discharged? Hospital course, mention meds given and route, prescriptions, significant lab abnormalities, going to OR and other pertinent info. @ -37-year-old female presenting with chief complaint of painful abscess to the left sided labia. Patient was in urgent care yesterday and started on Bactrim, however the abscess was not drained. She is having increasing pain with any Of activity today. On physical exam there is a quarter-sized abscess to the left labia majora. The area is anesthetized with 1% lidocaine and incised and drained. Patient is instructed to continue her Bactrim. She has a follow-up appointment with Dr. Villalta tomorrow. Discharged home. Follow-up with PCP. Report back to ER with any new or worsening symptoms. Discussed return parameters and answered all questions. Patient conveyed verbal understanding and agreed to the plan. I discussed this case in detail with my attending Dr. Bhatt Undiagnosed new problem with uncertain prognosis? @ -No Drug Therapy requiring intensive monitoring for toxicity (Heparin, Nitro, Insulin, Cardizem)? @ -No Were any procedures done? @ -Incision and drainage Diagnosis/symptom? @ -Abscess Acute, or Chronic, or Acute on Chronic? @ -Acute Uncomplicated (without systemic symptoms) or Complicated (systemic symptoms)? @ -Uncomplicated Side effects of treatment? @ -No Exacerbation, Progression, or Severe Exacerbation? @ -No Poses a threat to life or bodily function? How? (Chest pain, [place], [place], pneumonia, PE, COPD, DKA, ARF, appy, cholecystitis, CVA, Diverticulitis, Homicidal, Suicidal, threat to staff... and all critical care pts) @ -No Disposition Clinical Impression: Abscess Disposition: HOME SELF-CARE Condition: Good Instructions (If sedation given, give patient instructions): Abscess (ED) Additional Instructions: Follow-up at your scheduled [facility] appointment tomorrow. Report back to ER with any new or worsening symptoms. Continue taking Bactrim as prescribed. Is patient prescribed a controlled substance at d/c from ED?: No Referrals: Wild Tavera MD [Primary Care Provider] - 1-2 days Maite Gallagher MD [STAFF PHYSICIAN] - 1-2 days Time of Disposition: 20:29
[2023-02-23 20:58] VITALS: BP 117/85; PULSE 91
== END 2023-02-23 21:05 | disposition home or self-care (01) ==
LOC: EC 19:22
DX: N76.4 Abscess of vulva (principal); J45.909 Unspecified asthma, uncomplicated; Z79.899 Other long term (current) drug therapy; Z88.8 Allergy status to other drugs, medicaments and biological substances
CPT/HCPCS: 99283; 56405; J2001

== ENCOUNTER 2023-05-05 10:10 | Day surgery (SDC) | payer OTHER ==
[2023-05-01 09:32] VITALS: BMI 48.0
[~2023-05-05 10:10] MED LIST changes: -DEXAMETHASONE SOD PHOSPHATE 4 MG/ML 1 ML VIAL IV ONE; -LACTATED RINGERS 1,000 ML IV SCH; -MIDAZOLAM 2 MG/2 ML VIAL IV PRN; -ONDANSETRON 4 MG/2 ML VIAL IVP ONE
[2023-05-05] MEDS: LACTATED RINGERS 1,000 ML IV SCH (11:03)
[2023-05-05 11:14] VITALS: TEMP 97.3
[2023-05-05 11:20] LABS: Glucose,Whole Blood 93 mg/dL (70-110)
[2023-05-05] MEDS ORDERED: PROPOFOL 10 MG/ML 20 ML VIAL IV ONE (12:01)
[2023-05-05] MEDS ORDERED: LIDOCAINE 2% (PF) 20 MG/ML 5 ML VIAL ONE (12:01)
[2023-05-05] MEDS ORDERED: fentaNYL (PF) 50 MCG/ML 2 ML AMP ONE (12:01)
--- NOTE | 2023-05-05 12:42 | P.PCN ---
Date of Procedure: 05/05/23 Procedure(s) Performed: BRIEF HISTORY: Patient is a 38-year-old, pleasant, white female scheduled for an upper endoscopy as a part of evaluation of long-standing history of GERD. She is presently on omeprazole 40 mg twice daily and Pepcid at bedtime and still remains symptomatic.. PROCEDURE PERFORMED: Esophagogastroduodenoscopy with biopsy. PREOPERATIVE DIAGNOSIS: Refractory GERD symptoms. IV sedation per anesthesia. PROCEDURE: After informed consent was obtained, the patient was brought into [facility] endoscopy unit. IV sedation was administered by Anesthesia under continuous monitoring. Initially the Olympus GIF-140 video endoscope was inserted into the mouth. Esophagus intubated without any difficulty. It was gradually advanced into the stomach and duodenum and carefully examined. The bulb and the second part of the duodenum appeared normal. The scope at this time was withdrawn to the stomach, adequately insufflated with air, and upon careful examination, mucosa of the antrum, had linear areas of erythema consistent with gastritis and biopsies were done from this area. Mucosa of the body, cardia and the fundus appeared normal. The scope was then withdrawn into the esophagus. The GE junction was located at 39 cm from the incisors. The esophagus appeared normal. There were no erosions or ulcerations seen , biopsies were done from the distal esophagus and the patient tolerated the procedure well. IMPRESSION: 1. Mild antral gastritis. 2. Normal-appearing esophagus with no evidence of esophagitis or Benavides's esophagus. RECOMMENDATIONS: The findings of this examination were discussed with the patient as well as her family. She was advised to follow with the biopsy result s. Continue with omeprazole 40 mg twice daily and follow antireflux measures..
[2023-05-05 13:06] VITALS: BP 117/78; PULSE 74; RESP 16
== END 2023-05-05 12:58 | disposition home or self-care (01) ==
LOC: ORWHC2ENDO 10:10
PROVIDERS: ATTEND Internal Medicine Gastroenterology
DX: K29.50 Unspecified chronic gastritis without bleeding (principal); K21.9 Gastro-esophageal reflux disease without esophagitis; Z88.1 Allergy status to other antibiotic agents; J45.909 Unspecified asthma, uncomplicated; Z79.899 Other long term (current) drug therapy; E66.01 Morbid (severe) obesity due to excess calories; Z68.43 Body mass index [BMI] 50.0-59.9, adult
CPT/HCPCS: 81025; 88305; 43239; J3010; J2704; J2001

== ENCOUNTER → 2023-05-26 | Outpatient (CLI) | payer OTHER ==
[2023-05-27 05:46] LABS: Gliadin AB IgA, Deaminated Negative (Negative); Gliadin AB IgA, Unit <0.5 U/mL; Gliadin AB IgG, Deaminated Negative (Negative); Gliadin AB IgG, Unit <0.4 U/mL
== END | disposition home or self-care (01) ==
LOC: LABWHC1 16:20
PROVIDERS: ATTEND Internal Medicine Gastroenterology
DX: R19.4 Change in bowel habit (principal)
CPT/HCPCS: 36415; 83516; 85652; 86140

== ENCOUNTER → 2023-06-11 | Outpatient (CLI) | payer OTHER | END | disposition home or self-care (01) | LOC: RADFLMAIN 08:07 | PROVIDERS: ATTEND Internal Medicine Gastroenterology | DX: Z53.9 Procedure and treatment not carried out, unspecified reason (principal) ==

== ENCOUNTER → 2023-08-19 | Outpatient (CLI) | payer BC ==
--- NOTE | 2023-08-19 08:01 | MM ---
Reason for Exam: Clinical finding. Last mammogram was performed 1 year(s) and 4 month(s) ago. Indicated Problems: Lump or thickening of the left side for 1 Month(s). Patient History: Menarche at age 13. First Full-Term at age 32. Late child-bearing (after 30). Hormonal Contraceptives, starting at age 34. Maternal aunt had breast cancer, age 40. Maternal aunt had breast cancer, age 50. Paternal grandmother had breast cancer, age 67. Risk Values: Le 5 year model risk: 0.5%. NCI Lifetime model risk: 15.1%. Tissue Density: There are scattered areas of fibroglandular density. Findings: Analyzed By CAD. The pattern is symmetrical. No significant interval change is evident. A marker is over the upper outer anterior mid left breast and a palpable abnormality. No underlying mammographic abnormality evident. Ultrasound is recommended for additional workup. This area corresponds intermittent pain as well. No suspicious groups of microcalcifications, spiculated or lobular masses, architectural distortion or other secondary signs of malignancy are mammographically apparent. Overall Assessment: Incomplete: need additional imaging evaluation, BI-RAD 0 Management: Diagnostic Breast Ultrasound of the left breast. A negative mammogram report should not preclude additional follow up of suspicious palpable abnormalities. Patient should continue monthly self breast exam. A clinical breast exam by your physician is recommended on an annual basis and results should be correlated with mammographic findings. Note on Le scores and lifetime risk: 1. A Le score greater than 3% is considered moderate risk. If this is the case, consider specialist referral to assess eligibility for a risk reducing agent. 2. If overall lifetime risk for the development of breast cancer is 20% or higher, the patient may qualify for future screening with alternating mammogram and breast MRI. Electronically signed and approved by: Mateo Villanueva D.O. Radiologis
--- NOTE | 2023-08-19 08:45 | USB ---
Reason for Exam: Clinical finding. Patient History: Menarche at age 13. First Full-Term at age 32. Late child-bearing (after 30). Hormonal Contraceptives, starting at age 34. Maternal aunt had breast cancer, age 40. Maternal aunt had breast cancer, age 50. Paternal grandmother had breast cancer, age 67. Risk Values: Le 5 year model risk: 0.5%. NCI Lifetime model risk: 15.1%. Technique: Method: Targeted. Doppler: Color. Patient AOC scanned sitting erect, nipple and axillary images taken in supine . Prior Study Comparison: 09/21/2009 Bilateral Diagnostic Mammogram, [facility]. 04/10/2022 Bilateral MG 3D screening mammo w/cad, [facility]. Findings: The area of palpable concern of the left breast, the axilla of the left breast and the retroareolar of the left breast were scanned. At the region of interest a very small lymph node is present with a fatty hilum and vascular flow. No corresponding mammographic abnormality is identified. No suspicious spiculated or shadowing mass is identified. Lymph nodes within the left axillary region.. Overall Assessment: Probably benign, BI-RAD 3 Management: Diagnostic Breast Ultrasound of the left breast in 6 months. A clinical breast exam by your physician is recommended on an annual basis and results should be correlated with mammographic findings. This exam should not preclude additional follow-up of suspicious palpable abnormalities. Results were given to the patient verbally at the time of exam. Electronically signed and approved by: Mateo Villanueva D.O. Radiologis
== END | disposition home or self-care (01) ==
LOC: RADMAMWWP 07:27
PROVIDERS: ATTEND Internal Medicine
DX: R92.323 Mammographic fibroglandular density, bilateral breasts (principal); N64.4 Mastodynia; Z80.3 Family history of malignant neoplasm of breast
CPT/HCPCS: 77062; 77066

== ENCOUNTER → 2024-01-08 | Outpatient (CLI) | payer BC ==
--- NOTE | 2024-01-08 11:21 | MM ---
Reason for Exam: Additional evaluation requested from abnormal screening. Last screening mammogram was performed 4 month(s) ago. Patient History: Menarche at age 13. First Full-Term at age 32. Late child-bearing (after 30). Hormonal Contraceptives, starting at age 34. Maternal aunt had breast cancer, age 40. Maternal aunt had breast cancer, age 50. Paternal grandmother had breast cancer, age 67. Risk Values: Le 5 year model risk: 0.5%. NCI Lifetime model risk: 15.1%. Prior Study Comparison: 09/21/2009 Bilateral Diagnostic Mammogram, [facility]. 04/10/2022 Bilateral MG 3D screening mammo w/cad, [facility]. 08/19/2023 Bilateral MG 3D diag mammo w/cad [facility], [facility]. Tissue Density: Left: There are scattered areas of fibroglandular density. Findings: Analyzed By CAD. Pain marker along the superior aspect of the left breast. No significant mass, suspicious microcalcification, or other discrete abnormality is seen. Overall Assessment: Incomplete: need additional imaging evaluation, BI-RAD 0 Management: Diagnostic Breast Ultrasound of the left breast. [facility], , 01/08/2024 11:17 AM. Electronically signed and approved by: Joelle Otero M.D. Radiologist
--- NOTE | 2024-01-08 11:26 | USB ---
Reason for Exam: Follow-up at short interval from prior study. Patient History: Menarche at age 13. First Full-Term at age 32. Late child-bearing (after 30). Hormonal Contraceptives, starting at age 34. Maternal aunt had breast cancer, age 40. Maternal aunt had breast cancer, age 50. Paternal grandmother had breast cancer, age 67. Risk Values: Le 5 year model risk: 0.5%. NCI Lifetime model risk: 15.1%. Technique: Method: Targeted. Prior Study Comparison: 09/21/2009 Bilateral Diagnostic Mammogram, [facility]. 04/10/2022 Bilateral MG 3D screening mammo w/cad, [facility]. 08/19/2023 Bilateral MG 3D diag mammo w/cad [facility], [facility]. Findings: The area of palpable concern of the left breast, the axilla of the left breast and the retroareolar of the left breast were scanned. Targeted ultrasound 10:00 position of the patient's palpable and painful site shows no solid or cystic lesion. No axillary adenopathy. No subareolar duct ectasia.. Overall Assessment: Benign, BI-RAD 2 Management: Screening Mammogram of both breasts in 9 months. In time for the patient's annual exam. Further clinical management of any breast pain. This exam should not preclude additional follow-up of suspicious palpable abnormalities. If any enlarging or changing area is palpated, the patient can be rescanned. If persistent concern, further evaluation by a breast specialist can also be considered. Results were given to the patient verbally at the time of exam. [facility], , 01/08/2024 11:23 AM. Electronically signed and approved by: Joelle Otero M.D. Radiologist
== END | disposition home or self-care (01) ==
LOC: RADMAMWWP 10:24
PROVIDERS: ATTEND Internal Medicine
DX: N64.4 Mastodynia (principal); Z80.3 Family history of malignant neoplasm of breast; R92.322 Mammographic fibroglandular density, left breast
CPT/HCPCS: 77061; 77065